=== PATIENT | female | born 1935 | race Caucasian/White ===

== ENCOUNTER 2018-11-20 14:09 | Inpatient (IN) | payer MEDICARE ==
[~2018-11-20] VITALS: Ht 157.5 cm; Wt 51.3 kg
--- NOTE | 2018-11-20 13:20 | NUR ---
ADMISSION PT ARRIVED ON UNIT ESCORTED BY COLLECTIONS ASSISTANT DEPARTMENT. ADMISSION ASSESSMENT COMPLETED REFER TO EMR.
[2018-11-20 14:45] VITALS: BP 138/72
[2018-11-20] MEDS ORDERED: ATIVAN IM PRN (15:30)
[2018-11-20] MEDS ORDERED: HALDOL IM PRN (15:30)
[2018-11-20] MEDS ORDERED: HALDOL PO PRN (15:30)
[2018-11-20 20:04] VITALS: BP 128/83
[2018-11-20] MEDS ORDERED: ATIVAN ONE (20:51)
[2018-11-20] MEDS: ATIVAN PO PRN (20:57)
--- NOTE | 2018-11-20 21:01 | NUR ---
Anxiety pt has been going up and down cote stating she is ready to leave, staff has made several attempts at redirecting pt. Pt received ativan 0.5mg po at this time,will cont to monitor pt's behaviors
--- NOTE | 2018-11-20 22:42 | PSYCH ---
DATE OF SERVICE: 11/20/2018 INITIAL PSYCHIATRIC ADMISSION HISTORY AND PHYSICAL REASON FOR ADMISSION: The patient was extremely confused and driving on the highway in a neurotic way that was dangerous to other people. She was not able to give a history to police when they pulled her over. She was extremely confused. HISTORY OF PRESENT ILLNESS: The patient is an 83-year-old female who lives in [place], [place]. She was reportedly driving in the [employer] erratically. Police were called on her and they picked her up, when she was extremely confused. She was taken to the nearest Emergency Room, which was in [place], [place]. The patient was noted to be extremely confused and not able to explain why she was in [place] when she lived in [place], [place]. She reportedly has a history of alcohol abuse versus dependence. She downplays and denies having a problem with alcohol. She reports drinking 2-3 shots of liquor a few times per week. She states having 2 DUIs in the past. She denies feeling depressed. She reported her mood was happy. She denies suicidal or homicidal ideation. She reports sleeping well at night. She reports a normal appetite. She denies feelings of guilt. She has a poor concentration level. She denies auditory or visual hallucinations. She denies paranoia. She does not have manic or hypomanic symptoms. She denies taking any medications. She was not in any physical pain during the interview. She tried to be cooperative. She does have a poor concentration level. She was disoriented to place, time and situation. She was able to state her name and date of . PAST PSYCHIATRIC HISTORY: The patient states she has never been treated for mental health problems. She denies being hospitalized for psychiatric reasons in the past. She denies ever seeing a psychiatrist or therapist. She denies ever attempting suicide. She does report having 2 DUIs in the past. She does not feel like she has an alcohol problem. PAST MEDICAL HISTORY: History of asthma. CURRENT MEDICATIONS: None reported. ALLERGIES: No known drug allergies. FAMILY PSYCHIATRIC HISTORY: None reported. SOCIAL HISTORY: The patient reports drinking 1-2 shots of alcohol 2 times a week. She does not feel like she has an alcohol problem. She had 2 DUIs in the past. She denies using illicit drugs. She denies smoking cigarettes. She reports quitting smoking 10 years ago. 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 She has been 3 times in the past. She is currently not . She reports having 2 stepsons. One stepson lives close to her in [place], [place]. She could not describe why she was in the [facility]. She is not able to give any other useful social history. OBJECTIVE: VITAL SIGNS: Height is 157.48 cm, weight is 47.17 kilograms, temperature is 99.3, pulse is 69, respirations are 18, blood pressure is 138/72, O2 saturations 96% on room air. The patient was not having any physical pain or distress at the time of the interview. REVIEW OF SYSTEMS: CONSTITUTIONAL: No recent changes in weight. No fatigue. No insomnia. NEUROLOGICAL: No tremors. No weakness. No dizziness. PSYCHIATRIC: No SI or HI. No depression. Minimal anxiety. No psychosis. No marielle. No alcohol withdrawal symptoms. GASTROINTESTINAL: No diarrhea, no nausea, no constipation, no vomiting, no GERD symptoms. GENITOURINARY: No problems urinating. No pain on urination. CARDIOVASCULAR: No chest pain or chest palpitations. RESPIRATORY: No shortness of breath. No wheezing or coughing. SKIN: No problems reported. ENDOCRINE: No heat or cold intolerance. EXTREMITIES: No swelling or edema. EYES: No recent changes in vision. EARS: No recent changes in hearing. MUSCULOSKELETAL: No abnormal muscle movements. No musculoskeletal pain reported. Review of systems is otherwise negative and reviewed by Dr. Ernandez. MENTAL STATUS EXAMINATION: MUSCLE STRENGTH AND TONE: Within normal limits for age. GAIT AND STATION: Within normal limits for age. APPEARANCE: Well-groomed and good hygiene. Appears stated age. Casual attire. Normal weight. ATTITUDE AND BEHAVIOR: Tried to be cooperative. Good eye contact. No psychomotor activity. MOOD AND AFFECT: Mood is reported as good. Affect is euthymic. ATTENTION AND CONCENTRATION: Fair attention and poor concentration. ORIENTATION: Disoriented to place, time and situation. SPEECH: Regular rate and volume. JUDGMENT: Poor judgment and poor insight. THOUGHT PROCESS: Logical and goal directed. LANGUAGE: Ugandan. THOUGHT CONTENT: Negative for suicidal or homicidal ideation. Negative for auditory or visual hallucinations. Negative for paranoia. FUND OF KNOWLEDGE: Within normal limits. ASSOCIATIONS: Within normal limits. MEMORY: Recent and remote memories are both impaired. STRENGTHS: Good physical health. WEAKNESSES: Poor judgment and poor insight. Cognitive impairment: Yes. ADMITTING DIAGNOSES: Delusional disorder; generalized anxiety disorder; dementia with behavior disturbance. Rule out alcohol abuse versus dependence. TREATMENT PLAN: 1. The patient will be an involuntary admission to the Behavioral Health Unit at [facility]. The patient will be monitored closely for behaviors. 2. The patient will be started on Haldol 2 mg p.o. IM q. 6 hours p.r.n. delusions. The patient will be started on Ativan 0.5 mg p.o. or IM q. 6 hours p.r.n. anxiety. She will be monitored closely for withdrawal symptoms. 3. She will see the general medical doctor for general medical health issues. 4. The patient was encouraged to participate in all groups and activities. 5. Social work will speak with the patient's stepson who lives on the same block as it is hard to get more information about the story. We will work on trying to find an appropriate place to discharge her to. She should not be driving due to her confusion and danger to others on the highway. Yandy Ernandez IV MD DR: /betzy JOB# [id number]
--- NOTE | 2018-11-21 00:03 | PCM.HP ---
HISTORY & PHYSICAL HISTORY & PHYSICAL DATE OF ADMISSION: CHIEF COMPLAINT: 83 yo female with acute confusion [place] [address] [place], in her vehicle, confused and driving dangerously slow. Unfortunatley pt unaware of where she is going or of any family contacts. She is cleared for psychiatric admission and evaluation. H&P #[id number] HISTORY OF PRESENT ILLNESS: ALLERGIES: CURRENT MEDICATIONS: PAST MEDICAL HISTORY: SOCIAL HISTORY: FAMILY HISTORY: REVIEW OF SYSTEMS: PHYSICAL EXAMINATION: GENERAL: VITAL SIGNS: HEENT: NECK: LUNGS: HEART: ABDOMEN: EXTREMITIES: NEUROLOGIC: LABORATORY DATA: IMPRESSION: CARE PLAN: AMAURI LEE MD Nov 21, 2018 00:03
--- NOTE | 2018-11-21 00:56 | HPH ---
ADMIT DATE: 11/20/2018 CHIEF COMPLAINT: Altered mental status. HISTORY OF PRESENT ILLNESS: This is an 83-year-old female with an unknown past medical history, who was brought to [facility] at [facility] after she was found with an altered mental status. Apparently, the patient lives in [place], [place] and was [place] on [address] outside of [facility] and was found in her car driving dangerously and slowly by the state police. EMS was then called when the patient was found and was confused and did not know where she was going. At that time, she apparently did not know where she lives. She is unable to tell us anything about her history or any of her family history other than she has 2 stepsons. When one stepson was contacted in [place], [place], he stated that she did not want anything to do with the patient secondary to her drinking. The patient is confused upon my interview and does not remember anything about this and does not remember drinking alcohol. The patient was transferred from the [facility] to [facility] for further evaluation and management. During my interview, she is confused, but is very cooperative and pleasant. She offers no active complaints other than not knowing where she is or where she was going. PAST MEDICAL HISTORY: 1. Hypertension by history. 2. Possible alcohol abuse. 3. Malnutrition. 4. Memory loss. PAST SURGICAL HISTORY: Unknown. MEDICATIONS: Unknown. ALLERGIES: No known drug allergies. SOCIAL HISTORY: Tobacco -- none. Alcohol -- the patient does not remember. FAMILY HISTORY: Unknown. REVIEW OF SYSTEMS: Other than the above-mentioned symptoms and complaints, the 11-point review of systems is negative. OBJECTIVE: VITAL SIGNS: Temperature 99.3, pulse 69, respirations 18, blood pressure 138/72, pulse oximetry 96% on room air. GENERAL: This is a well-appearing female, in no acute distress, albeit malnourished and with multiple skeletal protrusions. HEENT: Atraumatic, normocephalic. NECK: Soft, supple. Normal range of motion. LUNGS: Clear to auscultation bilaterally. HEART: Regular rate and rhythm without murmurs, S3 or S4. ABDOMEN: Soft, nontender, nondistended. Positive bowel sounds. No masses felt. EXTREMITIES: No edema, cyanosis or clubbing. Warm and well perfused. NEUROLOGIC: Cranial nerves 2-12 are grossly intact and symmetric. SKIN: Intact. PSYCHIATRIC: The patient is alert and oriented x2 during my examination. LABORATORY DATA: Pending. ASSESSMENT: 1. Acute delirium/memory loss. 2. Possible alcohol use/abuse. 3. Hypertension. 4. Moderate to severe protein-calorie malnutrition. PLAN: 1. The patient is admitted to [facility] for further evaluation and management. 2. Check TSH, B12, folate, thiamin and prealbumin levels. 3. Start patient on appetite stimulant. 4. Medications for psychosis and acute delirium as needed. 5. Psychiatric consultation and social services assistant consultation for possible placement. 6. The patient is cleared from a medical standpoint to begin psychiatric consultation. Yomi Kern MD DR: JODY/betzy JOB# [id number]
--- NOTE | 2018-11-21 04:39 | NUR ---
PIRP: P:ALTERED THOUGHT PROCESS, MALNUTRITION I: PROVIDE SAFE AND SUPPORTIVE ENVIRONMENT, PROVIDE REALITY ORIENTATION NEEDED, PROVIDE MEDICATIONS ORDERED, PROVIDE 1:1 TO ALLOW PT. TO EXPRESS THOUGHTS AND FEELINGS, MONITOR AND DOCUMENT FLUID AND FOOD INTAKE, ORDER DIETARY CONSULT, ENCOURAGE FLUIDS AND ENCOURAGE PT. TO EAT ALL MEALS AND SNACKS. R: PT. HAS A SAFE AND SUPPORTIVE ENVIRONMENT, PT. IS ORIENTED TO SELF ONLY. PT. THINKS SHE IS IN [place]. PT. TOOK HER NIGHT TIME MEDS. ALL FOOD AND FLUID ARE MONITOR AND RECORDED IN CHART, DIETARY CONSULT IS ORDERED. PT. IS PROVIDED A 1:1 TO EXPRESS HER FEELINGS, PT. ATE A SNACK TONIGHT. SHE HAD ICE CREAM AND A SODA. PT. HAS WANDERED IN THE GOTTI AND HAS BEEN EXIT SEEKING. PT. IS EASILY REDIRECTED. PT. IS PLEASANT AND COOPERATIVE. DENIES AND DEPRESSION, ANXIETY OR S/H IDEATION. CONTINUE CURRENT TX. PLAN
[2018-11-21 07:52] VITALS: BP 126/59
--- NOTE | 2018-11-21 09:29 | NUR ---
INFORMATION PT GAVE VERBAL CONSENT TO CHRISTO VALDEZ TO OBTAIN INFORMATION FROM AND PHARMACY TO HELP IN CARE. PLACED A CALL TO [facility]. THEY LOOKED UP THE PHARMACY RECORDS FOR PT IN [place]. THEY SAID RECORDS SHOWED THE LAST THING PT HAD ON FILE WAS A FLU VACCINE OCTOBER OF 2017. BEFORE THAT WAS A COUPLE YEARS AGO. NOTES FROM [facility] SHOWED THAT PTS IS A DR BRENTON RODRIGUEZ IN [facility][1]. LOOKED UP THE NUMBER ([phone]) AND CALLED. TALKED TO Lina JACQUES AND EXPLAINED WHO I WAS/WHERE AND EXPLAINED WHAT I NEEDED. SHE ASKED FOR FAX NUMBER AND CALL BACK NUMBER. BOTH NUMBERS WERE PROVIDED. GEORGIE DID SAY THAT PT HAS A OPEN APS CASE. ALL INFORMATION REPORTED TO CHRISTO.
--- NOTE | 2018-11-21 10:08 | NUR ---
PAST MEDICAL HISTORY ON H&P FROM DR. 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 MOTHER CAUSE OF PANCREATIC CANCER HISTORY OF ARRHYTHMIA FATHER CAUSE OF CORONARY OCCLUSION HISTORY OF HEART DISEASE AND HEART ATTACK SISTER MULTIPLE MYELOMA ALSO SHOWS THAT PT WAS TO BE TAKING ZOCOR 40MG DAILY. Addendum: 11/21/18 at 1023 by Tomasa Cabrera LVN - GP FIOR Amended: Links added.
--- NOTE | 2018-11-21 14:19 | PRM.PN ---
Mood: STABLE, NO ACUTE COMPLAINTS Sleep: SLEPT 7.25 HOURS. REPORTS SHE HAD A HARD TIME FALLING SLEEP. Appetite: GOOD Suidical thoughts: DENIES Homicidal thoughts: DENIES Recent stressors: COGNITIVE DECLINE Family support: POOR Aggressive Behavior: NONE NOTED Ability to Perform ADL'sc: FAIR Psychotic sympstoms: DELUSIONAL THINKING DUE TO DEMENTIA Manic Symptoms: NONE NOTED Living situation: ALONE Illicit Drug usec: NONE Alcoholo use: HISTORY OF ALCOHOLISM Tobacco use: NONE Family,PT,Surgical,&Current HX: (1) Delusional disorder Anxity Symptoms: DENIES Anger/Irritablility: NONE NOTED. Muscle Strength & Tone: WNL Gait & Station: WNL Appearance: Well groomed/hygience, Normal weight, Appears age stated, Underweight Attitude & Behaviour: Cooperative/Pleasant, Good eye contact Mood & Affect: Euthymic/appr/congruent Orientation: Disoriented to place, Disoriented to time, Disoriented to situation Attention/Concentration: Fair attention, Fair concentration Speech: Reg rate/vol/rhyth/prosod Judgement/Insight: Poor judgement, Poor insight Thought Process: Loose Language: Tanzanian Thought content/Abnormal/Psych: Delusions Fund of Knowledge: Other (LIMITED) Associations: MELVA Memory (recent and remote): Recent memory repaired, Remote memory repaired Constitutional: None Neurological: None Psychiatric: None Dannemora I: DEMENTIA Dannemora II: DEFERRED Dannemora III: SEE MEDICAL CHART/PMH Dannemora IV: DEMENTIA Dannemora V: 20 Assessment/Plan Assessment/Plan Plan Vital Signs Date Time Temp Pulse Resp B/P (MAP) Pulse Ox O2 Delivery O2 Flow Rate FiO2 11/21/18 07:52 98.4 63 18 126/59 (81) 95 Room Air 98.4 Allergies Coded Allergies Type Severity Reaction Last Updated Verified No Known Allergies 11/20/18 No Current Medications Medications (Trade) Dose Ordered Sig/Jany PRN Reason Start Time Stop Time Status Last Admin Haloperidol (Haldol) 2 mg Q6H PRN DELUSIONS 11/20/18 15:30 12/20/18 15:29 Haloperidol Lactate (Haldol) 2 mg Q6HR PRN DELUSIONS 11/20/18 15:30 12/20/18 15:29 Lorazepam (Ativan) 0.5 mg Q6 PRN ANXIETY 11/20/18 15:30 12/20/18 15:29 Lorazepam (Ativan) 0.5 mg Q6HR PRN ANXIETY 11/20/18 15:30 3 15:29 11/20/18 20:57 Intake and Output 11/21/18 07:00 Intake Total 1020 ml Balance 1020 ml Intake Oral 1020 ml # Voids 5 # Bowel Movements 1 THE PATIENT WAS SEEN BY HEATH VARELA VIA TELEMEDICINE EQUIPMENT (SUPPORTED BY [facility]) ALONG WITH THE TREATMENT TEAM. SHE IS SLEEPING WELL. SHE HAS NOT HAD ANY PROBLEMS ON THE UNIT SINCE SHE ARRIVED. SHE REPORTS THAT SHE SLEPT WELL ONCE SHE FELL ASLEEP. SHE IS EATING WELL. SHE BELIEVES THAT IT IS 2011. SHE ALSO BELIEVES THAT SHE IS [place]. SHE ALSO BELIEVES THAT SHE WAS 85. SHE REPORTS THAT SHE WAS GOING TO THE HOSPITAL IN [place] WHEN SHE LEFT. SHE BELIEVES THAT SHE HAD A SITUATION THAT NEEDED TO BE TREATED BUT SHE DOES NOT RECALL WHY SHE WAS GOING THERE. SHE DOES NOT RECOGNIZE THAT HER MEMORY IS IMPAIRED. SHE LIVES ALONE WITH HER DOG. SHE IS PLEASANT AND COOPERATIVE BUT VERY CONFUSED. SHE DENIES SI/HI/AV/VH. ASSESSMENT: DEMENTIA PLAN: 1. CONTINUE BEHAVIORAL HEALTH MANAGEMENT. 2. CONTINUE CURRENT MEDICATIONS PRESCRIBED. STAFF AGREEABLE WITH PLAN 3. ALL PATIENT QUESTIONS ANSWERED RELATED TO MEDICATIONS, PLAN OF CARE, AND EXPECTED OUTCOMES. 4. SAFETY PLAN DISCUSSED. HEATH VARELA NP Nov 21, 2018 14:18
--- NOTE | 2018-11-21 16:02 | NUR ---
GMAS SCORE : FINDINGS INDICATE PT IS WITHIN NORMAL RANGE Addendum: 11/22/18 at 1702 by Adrienne Moreau LMSW SW Amended: Links added.
--- NOTE | 2018-11-21 16:10 | NUR ---
MMSE SCORE 20: FINDINGS INDICATE MILD IMPAIRMENT Addendum: 11/22/18 at 1702 by Adrienne Moreau LMSW SW Amended: Links added.
--- NOTE | 2018-11-21 16:46 | NUR ---
SYMPTOMATOLOGY: PT LIVES IN [place], [place] AND [place] [address] [place]OW AND WHEN SHE STOPPED SHE WAS GETTING IN AND OUT OF THE CAR AND DISORIENTED AND CONFUSED. PT WAS ONLY ORIENTED TO SELF AND UNABLE TO TELL WHERE SHE WAS OR WHY. PT WAS BROUGHT TO [facility] FOR FURTHER MANAGEMENT AND IS INVOLUNTARY. PT HAS A APS SOFT[employer] W[employer]ER IN [place] ([employer]) WHO IS CURRENTLY TRYING TO WORK ON GUARDIANSHIP SO THEY CAN PLACE PT HER CONTACT NUMBER IS [phone] AND FAX IS [phone]. SS TO CONTINUE TO FOLLOW AND MONITOR DISCHARGE PLANNING NEEDS. Addendum: 11/22/18 at 1702 by Adrienne SHELBY Amended: Links added.
[2018-11-21 19:20] VITALS: BP 141/82
--- NOTE | 2018-11-21 19:49 | NUR ---
PIRP P: DEMENTIA I: RE-ORIENT TO SURROUNDINGS NEEDED, MONITOR FOR CHANGES IN USUAL BEHAVIOR, Q15 MIN MONITORING, REDIRECT WITH VERBALIZATION, GIVE CLEAR AND SIMPLE INSTRUCTIONS, REDIRECT WITH VERBALIZATION, PROVIDE 1:1 TO ENCOURAGE EXPRESSION OF FEELINGS, PROVIDE TASK-ORIENTED ACTIVITIES, ASSESS FOR PSYCHOTIC SYMPTOMS, PROVIDE SAFE AND SUPPORTIVE ENVIRONMENT, REINFORCE UNIT RULES R: PT HAS PLEASANT, CHEERFUL AFFECT THROUGHOUT SHIFT. REQUIRES VERBAL REDIRECTION D/T DISORIENTATION. DENIES FEELINGS OF DEPRESSION, ANXIETY, SI/HI. NO HALLUCINATIONS OR DELUSIONS NOTED. HAS PARTICIPATED IN GROUP ACTIVITIES, INITIATES INTERACTION WITH STAFF AND PEERS. NO THREATENING OR COMBATIVE BEHAVIORS NOTED. WANDERS GOTTI FREQUENTLY AND REQUESTS TO GO HOME OR TO GO GET HER TRUCK, IS ABLE TO BE REDIRECTED WITH VERBALIZATION. P: RE-INFORCE UNIT RULES, PROVIDE REALITY ORIENTATION.
[2018-11-21] MEDS ORDERED: ATIVAN ONE (23:42)
[2018-11-21] MEDS: ATIVAN PO PRN (23:45)
--- NOTE | 2018-11-22 04:45 | NUR ---
PIRP- P- ALTERED THOUGHT PROCESS I- PROVIDE MEDICATION ORDERED,PROVIDE SAFE AND SUPPORTIVE ENVIRONMENT AND Q 15 MIN. MONITORING R- PT. ORIENTED TO NAME NOT MONTH OR YEAR. DENIES DEPRESSION AND ANXIETY. ATTENDED GROUP. WANDERED IN GOTTI AT TIMES. REQUIRES REDIRECTION . PT. EXHIBITED ANXIETY AND PUSHED A CHAIR UP TO HER DOOR AND A TOWEL AT THE BOTTOM OF HER DOOR TO BARRICADE IT. ATIVAN 0.5MG PO PRN GIVEN AT 2345. TOOK MEDICATION ORDERED. PT. GOT UP DURING THE NIGHT AND WENT INTO FEMALE PEER'S ROOM LOOKING FOR HER BR BUT WAS REDIRECTED. RESTING IN BED WITH EYES CLOSED AT THIS TIME. P- WILL CONTINUE WITH CURRENT TX. PLAN.
[2018-11-22 08:41] VITALS: BP 105/55
--- NOTE | 2018-11-22 09:39 | PRM.PN ---
Mood: STABLE, SOME RESTLESSNESS NOTED Sleep: SLEPT WELL LAST NIGHT Appetite: GOOD Suidical thoughts: DENIES Homicidal thoughts: DENIES Recent stressors: INCREASED CONFUSION Family support: POOR Aggressive Behavior: NONE NOTED Ability to Perform ADL'sc: GOOD Psychotic sympstoms: DENIES Manic Symptoms: NONE NOTED Living situation: ALONE Illicit Drug usec: NONE Alcoholo use: NONE Tobacco use: NONE Family,PT,Surgical,&Current HX: (1) Delusional disorder Anxity Symptoms: MILD TO MODERATE Anger/Irritablility: NONE NOTED Muscle Strength & Tone: WNL Gait & Station: WNL Appearance: Well groomed/hygience, Casual attire, Normal weight, Appears younger Attitude & Behaviour: Cooperative/Pleasant, Good eye contact Mood & Affect: Euthymic/appr/congruent Orientation: Disoriented to place, Disoriented to time, Disoriented to situation Attention/Concentration: Fair attention, Fair concentration Speech: Reg rate/vol/rhyth/prosod Judgement/Insight: Fair judgement, Poor insight Thought Process: Loose Language: Montserratian Thought content/Abnormal/Psych: None/normal Fund of Knowledge: Other (LIMITED TO MEMORY DEFICITS) Associations: MELVA Memory (recent and remote): Recent memory repaired, Remote memory repaired Constitutional: None Neurological: None Psychiatric: None Lincoln I: DEMENTIA W/O BEHAVIORAL DISTURBANCES [place] II: DEFERRED Lincoln III: SEE MEDICAL CHART Lincoln IV: CONFUSION Lincoln V: 35 Assessment/Plan Assessment/Plan Plan Vital Signs Date Time Temp Pulse Resp B/P (MAP) Pulse Ox O2 Delivery O2 Flow Rate FiO2 11/22/18 08:41 97.9 55 16 105/55 (72) 95 97.9 11/21/18 19:20 Room Air Allergies Coded Allergies Type Severity Reaction Last Updated Verified No Known Allergies 11/20/18 No Current Medications Medications (Trade) Dose Ordered Sig/Jany PRN Reason Start Time Stop Time Status Last Admin Haloperidol (Haldol) 2 mg Q6H PRN DELUSIONS 11/20/18 15:30 12/20/18 15:29 Haloperidol Lactate (Haldol) 2 mg Q6HR PRN DELUSIONS 11/20/18 15:30 12/20/18 15:29 Lorazepam (Ativan) 0.5 mg Q6 PRN ANXIETY 11/20/18 15:30 12/20/18 15:29 Lorazepam (Ativan) 0.5 mg Q6HR PRN ANXIETY 11/20/18 15:30 12/20/18 15:29 11/21/18 23:45 Intake and Output 11/22/18 07:00 Intake Total 1894 ml Balance 1894 ml Intake Oral 1894 ml # Voids 6 THE PATIENT WAS SEEN BY HEATH VARELA VIA TELEMEDICINE EQUIPMENT (SUPPORTED BY [facility]) ALONG WITH THE TREATMENT TEAM. SHE SLEPT WELL LAST NIGHT. SHE REPORTS FAIR ENERGY. SHE IS EATING WELL. SHE IS COOPERATIVE AND PLEASANT ON THE UNIT. SHE DENIES DEPRESSIVE SYMPTOMS. SHE REPORTS ANXIETY RELATED TO BEING ABLE TO SEE HER DOG. SHE DENIES SI/HI/AV/VH. SHE CONTINUES TO BE QUITE CONFUSED AND SHE IS A POOR HISTORIAN. SHE RECEIVED PRN ATIVAN YESTERDAY RESTLESSNESS. ASSESSMENT: DEMENTIA W/O BEHAVIORAL DISTURBANCES PLAN: 1. CONTINUE BEHAVIORAL HEALTH MANAGEMENT. [facility] SEEKING [facility]ACEMENT FOR HER AFTER THEY OBTAIN GUARDIANSHIP. 2. CONTINUE CURRENT MEDICATIONS PRESCRIBED. STAFF AGREEABLE WITH PLAN 3. ALL PATIENT QUESTIONS ANSWERED RELATED TO MEDICATIONS, PLAN OF CARE, AND EXPECTED OUTCOMES. 4. SAFETY PLAN DISCUSSED. HEATH VARELA NP Nov 22, 2018 09:39
--- NOTE | 2018-11-22 10:30 | NUR ---
TELE PT WAS SEEN BY Keira VARELA, SWETHA, DIRECTOR PHYSICAL. NO NEW ORDERS RECEIVED @ THIS TIME.
--- NOTE | 2018-11-22 18:32 | NUR ---
PIRP P: DEMENTIA I: MONITOR FOR CHANGES IN USUAL BEHAVIOR, Q15 MIN MONITORING, GIVE CLEAR AND SIMPLE INSTRUCTIONS, ASSESS FOR PSYCHOTIC SYMPTOMS, ASSIST WITH DIFFERENTIATING BETWEEN INTERNAL AND EXTERNAL REALITY, REDIRECT WITH VERBALIZATION, PROVIDE TASK-ORIENTED ACTIVITIES, RE-ORIENT TO SURROUNDINGS NEEDED R: PT HAS PLEASANT, BRIGHT AFFECT THROUGHOUT SHIFT. HAS NOT EXHIBITED THREATENING OR COMBATIVE BEHAVIORS. WANDERS GOTTI @ TIMES AND ASKS IF IT IS TIME FOR HER TO LEAVE OR IF SHE CAN GO GET HER VEHICLE, PT IS EASILY REDIRECTED WITH VERBALIZATION. DENIES FEELINGS OF DEPRESSION, ANXIETY, SI/HI. NO HALLUCINATIONS OR DELUSIONS NOTED. PARTICIPATES IN GROUP ACTIVITIES, RESPONDS APPROPRIATELY TO APPROACH. P: APS HAS BEEN CONTACTED BY Keny JARAMILLO LMSW. PENDING [facility] TO BE GRANTED GUARDIANSHIP OF PATIENT FOR FURTHER DISCHARGE PLANNING.
[2018-11-22 20:00] VITALS: BP 150/60
[2018-11-23] MEDS ORDERED: ATIVAN ONE (00:19)
[2018-11-23] MEDS: ATIVAN PO PRN (00:21)
--- NOTE | 2018-11-23 00:24 | NUR ---
medication patient up in hallway looking in other rooms, states she heard all the noise and was checking to see what it was, patient anxious, ativan 0.5mg po given per prn orders per RN
--- NOTE | 2018-11-23 03:04 | NUR ---
KATHIA P: DEMENTIA I: MONITOR FOR CHANGES IN USUAL BEHAVIOR, Q15 MIN MONITORING, GIVE CLEAR AND SIMPLE INSTRUCTIONS, ASSESS FOR PSYCHOTIC SYMPTOMS, ASSIST WITH DIFFERENTIATING BETWEEN INTERNAL AND EXTERNAL REALITY, REDIRECT WITH VERBALIZATION, PROVIDE TASK-ORIENTED ACTIVITIES, RE-ORIENT TO SURROUNDINGS NEEDED R: PT HAS PLEASANT, BRIGHT AFFECT THROUGHOUT SHIFT. HAS NOT EXHIBITED THREATENING OR COMBATIVE BEHAVIORS. WANDERS GOTTI @ TIMES AND LOSES ROOM OFTEN HAS TO ASK WHERE IT IS , WANDERED INTO WRONG ROOM ONCE TONIGHT HAD TO REDIRECT TO HERS , PT IS EASILY REDIRECTED WITH VERBALIZATION. DENIES FEELINGS OF DEPRESSION, ANXIETY, SI/HI. NO HALLUCINATIONS OR DELUSIONS NOTED. PARTICIPATES IN GROUP ACTIVITIES, INTERACT ACTS WELL WITH OTHERS , TOOK SNACK WELL , STATED ONCE THE ONLY THING THAT COULD BE BETTER IS HAVING HER DOG , PATIENT ORIENTATED TO NAME , BIRTHDAY UNABLE TO PLACE SELF OTHER THAN IN HOSPITAL BUT NOT LOCATION STATED I DID KNOW I WAS EVEN SICK , SLEEPING AT THIS TIME P: CONTINUE WITH CURRENT PLAN OF CARE Addendum: 11/23/18 at 0553 by Stephanie Curtis RN RN patient has slept 5.0 hrs
[2018-11-23 08:37] VITALS: BP 120/53
--- NOTE | 2018-11-23 09:44 | PRM.PN ---
Mood: "FINE", THE PATIENT DENIES FEELING DEPRESSED Sleep: SLEEPING OK AT NIGHT Appetite: NORMAL APPETITE Suidical thoughts: NONE REPORTED Homicidal thoughts: NONE REPORTED Recent stressors: STRESS OF MENTAL ILLNESS Family support: LIMITED Aggressive Behavior: NONE REPORTED Ability to Perform ADL'sc: YES Psychotic sympstoms: DELUSIONAL THINKING, DENIES HALLUCINATIONS Manic Symptoms: NONE REPORTED Living situation: LIVES AT HOME BY HERSELF Illicit Drug usec: NONE REPORTED Alcoholo use: NONE REPORTED Tobacco use: NONE REPORTED Anxity Symptoms: MODERATE ANXIETY LEVEL Anger/Irritablility: LIMITED ANGER AND IRRITABILITY Muscle Strength & Tone: WNL Gait & Station: WNL Appearance: Well groomed/hygience, Casual attire, Normal weight, Appears age stated Attitude & Behaviour: Cooperative/Pleasant Mood & Affect: Euthymic/appr/congruent Orientation: Disoriented to place, Disoriented to time, Disoriented to situation Attention/Concentration: Poor attention, Poor concentration Speech: Reg rate/vol/rhyth/prosod Judgement/Insight: Poor judgement, Poor insight Thought Process: Linear/goal directed Language: Welsh Thought content/Abnormal/Psych: Delusions Fund of Knowledge: Other Associations: WNL/Normal Associations Memory (recent and remote): Recent memory repaired, Remote memory repaired Constitutional: None Neurological: None Psychiatric: None [place] I: DELUSIONAL DISORDER, ANXIETY, DEMENTIA WITH BEHAVIOR PROBLEMS [place] II: DEFERRED [place] III: REFER TO PMH/MEDICAL CHART [place] IV: STRESS OF MENTAL ILLNESS [place] V: GAF=30 Assessment/Plan Assessment/Plan Assessment/Plan Vital Signs Date Time Temp Pulse Resp B/P (MAP) Pulse Ox O2 Delivery O2 Flow Rate FiO2 11/22/18 08:41 97.9 55 16 105/55 (72) 95 97.9 11/21/18 19:20 Room Air Allergies Coded Allergies Type Severity Reaction Last Updated Verified No Known Allergies 11/20/18 No Current Medications Medications (Trade) Dose Ordered Sig/Jany PRN Reason Start Time Stop Time Status Last Admin Haloperidol (Haldol) 2 mg Q6H PRN DELUSIONS 11/20/18 15:30 12/20/18 15:29 Haloperidol Lactate (Haldol) 2 mg Q6HR PRN DELUSIONS 11/20/18 15:30 12/20/18 15:29 Lorazepam (Ativan) 0.5 mg Q6 PRN ANXIETY 11/20/18 15:30 12/20/18 15:29 Lorazepam (Ativan) 0.5 mg Q6HR PRN ANXIETY 11/20/18 15:30 12/20/18 15:29 11/21/18 23:45 Intake and Output 11/22/18 07:00 Intake Total 1894 ml Balance 1894 ml Intake Oral 1894 ml # Voids 6 THE PATIENT WAS SEEN BY DEMETRIA SORENSEN MD VIA TELEMEDICINE EQUIPMENT (SUPPORTED BY [facility]) ALONG WITH THE TREATMENT TEAM. THE PATIENT'S MOOD IS UP AND DOWN. THE PATIENT HAS SUN DOWNING BEHAVIOR AT NIGHT. THE PATIENT HAS EXIT SEEKING BEHAVIOR. THE PATIENT SLEPT 5 HOURS LAST NIGHT. THE PATIENT HAS RECEIVED THREE PRN ATIVAN DOSES SINCE BEING IN THE FACILITY. THE PATIENT HAS A NORMAL ENERGY. THE PATIENT IS EATING WELL PER STAFF. SHE IS COOPERATIVE AND PLEASANT ON THE UNIT. SHE DENIES DEPRESSIVE SYMPTOMS. SHE REPORTS ANXIETY RELATED TO BEING ABLE TO SEE HER DOG. SHE DENIES SI/HI/AV/VH. SHE CONTINUES TO BE QUITE CONFUSED AND SHE IS A POOR HISTORIAN. THE PATIENT KNEW SHE WAS AT A HOSPITAL. THE PATIENT IS DISORIENTED TO PLACE, TIME, AND SITUATION. THE PATIENT DOES NOT REMEMBER THINGS VERY WELL. ASSESSMENT: DELUSIONAL DISORDER, DEMENTIA W/O BEHAVIORAL DISTURBANCES, GENERALIZED ANXIETY DISORDER PLAN: 1. CONTINUE BEHAVIORAL HEALTH MANAGEMENT. [facility] IS SEEKING PLACEMENT FOR HER AFTER THEY OBTAIN GUARDIANSHIP. 2. START RISPERDAL 0.25MG PO QHS. CONTINUE OTHER CURRENT MEDICATIONS PRESCRIBED. STAFF AGREEABLE WITH PLAN 3. ALL PATIENT QUESTIONS ANSWERED RELATED TO MEDICATIONS, PLAN OF CARE, AND EXPECTED OUTCOMES. 4. SAFETY PLAN DISCUSSED. 5. 16 MINUTES SPENT IN SUPPORTIVE THERAPY AND INSIGHT ORIENTED THERAPY. Problems: (1) Delusional disorder Status: Acute ICD Code: F22 - Delusional disorders SNOMED: 87636226 Plan Vital Signs Date Time Temp Pulse Resp B/P (MAP) Pulse Ox O2 Delivery O2 Flow Rate FiO2 11/22/18 08:41 97.9 55 16 105/55 (72) 95 97.9 11/21/18 19:20 Room Air Allergies Coded Allergies Type Severity Reaction Last Updated Verified No Known Allergies 11/20/18 No Current Medications Medications (Trade) Dose Ordered Sig/Jany PRN Reason Start Time Stop Time Status Last Admin Haloperidol (Haldol) 2 mg Q6H PRN DELUSIONS 11/20/18 15:30 12/20/18 15:29 Haloperidol Lactate (Haldol) 2 mg Q6HR PRN DELUSIONS 11/20/18 15:30 12/20/18 15:29 Lorazepam (Ativan) 0.5 mg Q6 PRN ANXIETY 11/20/18 15:30 12/20/18 15:29 Lorazepam (Ativan) 0.5 mg Q6HR PRN ANXIETY 11/20/18 15:30 12/20/18 15:29 11/21/18 23:45 Intake and Output 11/22/18 07:00 Intake Total 1894 ml Balance 1894 ml Intake Oral 1894 ml # Voids 6 THE PATIENT WAS SEEN BY HEATH VARELA VIA TELEMEDICINE EQUIPMENT (SUPPORTED BY [facility]) ALONG WITH THE TREATMENT TEAM. SHE SLEPT WELL LAST NIGHT. SHE REPORTS FAIR ENERGY. SHE IS EATING WELL. SHE IS COOPERATIVE AND PLEASANT ON THE UNIT. SHE DENIES DEPRESSIVE SYMPTOMS. SHE REPORTS ANXIETY RELATED TO BEING ABLE TO SEE HER DOG. SHE DENIES SI/HI/AV/VH. SHE CONTINUES TO BE QUITE CONFUSED AND SHE IS A POOR HISTORIAN. SHE RECEIVED PRN ATIVAN YESTERDAY RESTLESSNESS. ASSESSMENT: DEMENTIA W/O BEHAVIORAL DISTURBANCES PLAN: 1. CONTINUE BEHAVIORAL HEALTH MANAGEMENT. [facility] IS SEEKING PLACEMENT FOR HER AFTER THEY OBTAIN GUARDIANSHIP. 2. CONTINUE CURRENT MEDICATIONS PRESCRIBED. STAFF AGREEABLE WITH PLAN 3. ALL PATIENT QUESTIONS ANSWERED RELATED TO MEDICATIONS, PLAN OF CARE, AND EXPECTED OUTCOMES. 4. SAFETY PLAN DISCUSSED. DEMETRIA SORENSEN IV, MD Nov 23, 2018 09:44
--- NOTE | 2018-11-23 17:37 | NUR ---
PIRP P: DEMENTIA I: MONITOR FOR CHANGES IN USUAL BEHAVIOR, Q15 MIN MONITORING, GIVE CLEAR AND SIMPLE INSTRUCTIONS, ASSESS FOR PSYCHOTIC SYMPTOMS, ASSIST WITH DIFFERENTIATING BETWEEN INTERNAL AND EXTERNAL REALITY, REDIRECT WITH VERBALIZATION, PROVIDE TASK-ORIENTED ACTIVITIES, RE-ORIENT TO SURROUNDINGS NEEDED R: PT HAS NOT SHOWN ANY BEHAVIORS NOR REQUIRED ANY PRNS THIS SHIFT. NEW ORDER RECEIVED FOR RISPERDAL TO HELP PT SLEEP AT NIGHT. APS WORKER VISITED WITH NISA ALBERTS. PT CONTINUES TO WONDER IN [place] AND ASKS TO LEAVE BUT IS EASILY DIRECTED. P: CONTINUE WITH PLAN OF CARE, AND NEW MEDICATION REGIMEN
[2018-11-23 19:44] VITALS: BP 138/75
[2018-11-23] MEDS: RISPERDAL PO SCH (20:26)
--- NOTE | 2018-11-24 03:25 | NUR ---
PIRP- P- ALTERED THOUGHT PROCESS I- PROVIDE MEDICATION ORDERED,PROVIDE SAFE AND SUPPORTIVE ENVIRONMENT AND Q 15 MIN. MONITORING. R- PT. ORIENTED TO NAME AND MONTH NOT YEAR. DENIED DEPRESSION AND ANXIETY. ATTENDED GROUP,ATE SNACKS AND PARTICIPATED IN ACTIVITIES. TOOK MEDICATION ORDERED. WAS ASSISTED WITH A SHOWER. PLEASANT AFFECT. WANDERED AT TIMES BUT EASILY REDIRECTED. RESTING IN BED WITH EYES CLOSED AT THIS TIME. P- WILL CONTINUE WITH CURRENT TX. PLAN.
[2018-11-24 09:19] VITALS: BP 117/77
--- NOTE | 2018-11-24 10:31 | PRM.PN ---
Mood: STABLE DENIES DEPRESSIVE SYMPTOMS Sleep: SLEPT 5 HOURS Appetite: GOOD Suidical thoughts: DENIES Homicidal thoughts: DENIES Recent stressors: COGNITIVE DECLINE Family support: POOR Aggressive Behavior: NONE NOTES Ability to Perform ADL'sc: GOOD Psychotic sympstoms: DENIES Manic Symptoms: NONE NOTED Living situation: ALONE SEEKING PLACEMENT Illicit Drug usec: NONE Alcoholo use: NONE Tobacco use: NONE Family,PT,Surgical,&Current HX: (1) Delusional disorder Anxity Symptoms: DENIES Anger/Irritablility: NONE NOTED, DENIES Muscle Strength & Tone: WNL Gait & Station: WNL Appearance: Well groomed/hygience, Casual attire, Appears age stated, Appears younger Attitude & Behaviour: Cooperative/Pleasant, Good eye contact Mood & Affect: Euthymic/appr/congruent Orientation: Disoriented to place, Disoriented to time, Disoriented to situation Attention/Concentration: Fair attention, Fair concentration Speech: Reg rate/vol/rhyth/prosod Judgement/Insight: Poor judgement, Poor insight Thought Process: Loose Language: Maldivian Thought content/Abnormal/Psych: None/normal Fund of Knowledge: Other (LIMITED) Memory (recent and remote): Recent memory repaired, Remote memory repaired Constitutional: None Neurological: None Psychiatric: None [place] I: DELUSIONAL DISORDER, DEMENTIA W/O BEHAVIORAL DISTURBANCES [place] II: DEFERRED [place] III: SEE MEDICAL CHART [place] IV: COGNITIVE DECLINE [place] V: 30 Assessment/Plan Assessment/Plan Plan Vital Signs Date Time Temp Pulse Resp B/P (MAP) Pulse Ox O2 Delivery O2 Flow Rate FiO2 11/24/18 09:19 98.1 78 17 117/77 (90) 99 Room Air 98.1 Allergies Coded Allergies Type Severity Reaction Last Updated Verified No Known Allergies 11/20/18 No Current Medications Medications (Trade) Dose Ordered Sig/Jany PRN Reason Start Time Stop Time Status Last Admin Risperidone (Risperdal) 0.25 mg HS 11/23/18 21:00 12/23/18 20:59 11/23/18 20:26 Intake and Output 11/24/18 07:00 Intake Total 1946 ml Balance 1946 ml Intake Oral 1946 ml # Voids 2 THE PATIENT WAS SEEN BY HEATH VARELA VIA TELEMEDICINE EQUIPMENT (SUPPORTED BY [facility]) ALONG WITH THE TREATMENT TEAM. SHE IS DOING WELL OVERALL. SHE IS EATING AND SLEEPING WELL. SHE HAS BEEN CALM AND COOPERATIVE. SHE DENIES DEPRESSIVE AND ANXIOUS SYMPTOMS. SHE DENIES SI/HI/AV/VH. SHE REPORTS LOW ENERGY TODAY. RISPERDAL WAS STARTED YESTERDAY. SHE CONTINUES TO BE CONFUSED. ASSESSMENT: DELUSIONAL DISORDER, DEMENTIA W/O BEHAVIORAL DISTURBANCES PLAN: 1. CONTINUE BEHAVIORAL HEALTH MANAGEMENT. 2. CONTINUE CURRENT MEDICATIONS PRESCRIBED. STAFF AGREEABLE WITH PLAN 3. ALL PATIENT QUESTIONS ANSWERED RELATED TO MEDICATIONS, PLAN OF CARE, AND EXPECTED OUTCOMES. 4. SAFETY PLAN DISCUSSED. HEATH VARELA NP Nov 24, 2018 10:31
--- NOTE | 2018-11-24 10:52 | NUR ---
TELEMED PT SPOKE WITH DR VARELA DNP. PT IS PLEASANTLY CONFUSED. NO NEW ORDERS RECEIVED AT THIS TIME. CONTINUE PLAN OF CARE
--- NOTE | 2018-11-24 17:40 | NUR ---
PIRP P: DEMENTIA I: MONITOR FOR CHANGES IN USUAL BEHAVIOR, Q15 MIN MONITORING, GIVE CLEAR AND SIMPLE INSTRUCTIONS, ASSESS FOR PSYCHOTIC SYMPTOMS, ASSIST WITH DIFFERENTIATING BETWEEN INTERNAL AND EXTERNAL REALITY, REDIRECT WITH VERBALIZATION, PROVIDE TASK-ORIENTED ACTIVITIES, RE-ORIENT TO SURROUNDINGS NEEDED R: PT HAS NOT SHOWN ANY BEHAVIORS. IS CONFUSED, BUT IS PLEASANT. PT HAS NOT BEEN EXIT SEEKING TODAY. REMINISCING GROUPS DONE FOR COGNITIVE TRAINING. NO NEW PLANS FOR DISCHARGE. P: CONTINUE WITH PLAN OF CARE, AND NEW MEDICATION REGIMEN
[2018-11-24 20:21] VITALS: BP 156/60
[2018-11-24] MEDS: RISPERDAL PO SCH (21:01)
--- NOTE | 2018-11-25 04:05 | NUR ---
PIRP- P- ALTERED THOUGHT PROCESS I- PROVIDE MEDICATION ORDERED,PROVIDE SAFE AND SUPPORTIVE ENVIRONMENT AND Q 15 MIN. MONITORING. R- PT. ORIENTED TO NAME AND YEAR NOT MONTH. RATED DEPRESSION 5 AND DENIES ANXIETY. PARTICIPATED IN WORKING A [employer]. TALKED ABOUT HER DOGS AND HOW WORRIED SHE IS ABOUT THEM.ATE SNACKS. TOOK MEDICATION ORDERED. RESTING IN BED WITH EYES CLOSED AT THIS TIME. P- WILL CONTINUE WITH CURRENT TX. PLAN.
[2018-11-25 07:55] VITALS: BP 139/65
--- NOTE | 2018-11-25 16:46 | NUR ---
PIRP P: DEMENTIA I: PROVIDE SAFE AND SUPPORTIVE ENVIRONMENT, RE-ORIENT TO SURROUNDINGS NEEDED, Q15 MIN MONITORING, GIVE CLEAR AND SIMPLE INSTRUCTIONS, REDIRECT WITH VERBALIZATION, ASSESS FOR PSYCHOTIC SYMPTOMS, GIVE MEDICATIONS ORDERED, PROVIDE 1:1 TO ENCOURAGE EXPRESSION OF FEELINGS R: PT HAS PLEASANT, BRIGHT AFFECT. HAS NOT EXHIBITED THREATENING OR COMBATIVE BEHAVIORS. WANDERS @ TIMES, BUT HAS NOT BEEN ACTIVELY EXIT-SEEKING. ABLE TO REDIRECT WITH VERBALIZATION. DENIES FEELINGS OF DEPRESSION, ANXIETY, SI/HI. NO HALLUCINATIONS OR DELUSIONS NOTED. POOR SHORT TERM MEMORY, ALERT AND ORIENTED TO SELF. PARTICIPATES IN GROUP ACTIVITIES, COOPERATIVE WITH ADLS. P: REDIRECT WITH VERBALIZATION, ENCOURAGE EXPRESSION OF FEELINGS.
[2018-11-25 18:33] VITALS: BP 105/78
[2018-11-25] MEDS: RISPERDAL PO SCH (20:11)
--- NOTE | 2018-11-26 06:12 | NUR ---
pirp- P -ALTERED THOUGHT PROCESS I- PROVIDE MEDICATION ORDERED,Q 15 MIN. MONITORING, PROVIDE SAFE AND SUPPORTIVE ENVIRONMENT AND PROVIDE 1:1 INTERVENTION ALLOWING PT. TO EXPRESS THOUGHTS AND FEELINGS. R- PT. ORIENTED TIMES THREE. DENIES DEPRESSION AND ANXIETY. ATTENDED GROUP,ATE SNACKS,INITIATED INTERACTION AND PARTICIPATED IN DAILY GOAL ACCOMPLISHMENT AND EXERCISES. TOOK MEDICATION ORDERED. PLEASANT AFFECT. PT. HAS RESTED IN BED WITH EYES CLOSED FOR3.75 HOURS TONIGHT. AWAKE ,LYING IN BED AT THIS TIME. P- WILL CONTINUE WITH CURRENT TX. PLAN.
[2018-11-26 08:44] VITALS: BP 148/76
[2018-11-26] MEDS ORDERED: PEPCID ONE (13:28)
--- NOTE | 2018-11-26 13:32 | NUR ---
REFLUX DR. BLANCO NOTIFIED OF PT SELF-REPORTING INCREASE IN ACID REFLUX, RECEIVED ORDERS FOR OT AND SCHEDULED PEPCID, SEE EMR.
[2018-11-26] MEDS: PEPCID PO SCH ×2 (13:34→20:06)
--- NOTE | 2018-11-26 17:50 | NUR ---
PIRP P: DEMENTIA I: PROVIDE SAFE AND SUPPORTIVE ENVIRONMENT, RE-ORIENT TO SURROUNDINGS NEEDED, Q15 MIN MONITORING, GIVE CLEAR AND SIMPLE INSTRUCTIONS, REDIRECT WITH VERBALIZATION, ASSESS FOR PSYCHOTIC SYMPTOMS, GIVE MEDICATIONS ORDERED, PROVIDE TASK-ORIENTED ACTIVITIES, MONITOR FOR CHANGES IN USUAL BEHAVIOR R: PT HAS CHEERFUL, BRIGHT AFFECT THROUGHOUT SHIFT. HAS NOT EXHIBITED THREATENING OR COMBATIVE BEHAVIORS. ABLE TO ANSWER QUESTIONS APPROPRIATELY, INITIATES INTERACTION WITH STAFF AND PEERS, TAKES MEDICATIONS ORDERED. DENIES FEELINGS OF DEPRESSION, ANXIETY, SI/HI. NO HALLUCINATIONS OR DELUSIONS NOTED. ABLE TO REDIRECT WITH VERBALIZATION REGARDING DISCHARGE PLANNING. P: CONTINUE TO INVOLVE PATIENT IN DISCHARGE PLANNING AND RE-ORIENT TO SURROUNDINGS NEEDED.
[2018-11-26 19:53] VITALS: BP 140/73
[2018-11-26] MEDS: DESYREL PO SCH (20:06)
[2018-11-26] MEDS: RISPERDAL PO SCH (20:06)
--- NOTE | 2018-11-27 05:32 | NUR ---
pirp- P- ALTERATION IN THOUGHT PROCESS I- PROVIDE MEDICATION ORDERED,Q 15 MIN. MONITORING AND PROVIDE SAFE AND SUPPORTIVE ENVIRONMENT R- PT. WAS ORIENTED TO NAME NOT YEAR AND STATED IT WAS DECEMBER. PLEASANT AFFECT. ATE SNACKS AND PARTICIPATED IN GROUP NAME 3 GAME. TOOK MEDICATION ORDERED. NO INAPPROPRIATE BEHAVIORS NOTED THIS SHIFT. RESTING IN BED WITH EYES CLOSED AT THIS TIME. P - WILL CONTINUE WITH CURRENT TX. PLAN.
[2018-11-27 07:15] VITALS: BP 101/68
[2018-11-27] MEDS: PEPCID PO SCH ×2 (08:31→20:13)
--- NOTE | 2018-11-27 17:38 | NUR ---
PIRP P: DEMENTIA I: Q15 MIN MONITORING, MONITOR FOR CHANGES IN USUAL BEHAVIOR, PROVIDE SAFE AND SUPPORTIVE ENVIRONMENT, RE-ORIENT TO SURROUNDINGS NEEDED, Q15 MIN MONITORING, GIVE CLEAR AND SIMPLE INSTRUCTIONS, REDIRECT WITH VERBALIZATION, ASSESS FOR PSYCHOTIC SYMPTOMS, GIVE MEDICATIONS ORDERED, PROVIDE TASK-ORIENTED ACTIVITIES R: PT HAS CHEERFUL, BRIGHT AFFECT. RESPONDS APPROPRIATELY TO APPROACH, INITIATES INTERACTION WITH STAFF AND PEERS. PARTICIPATES IN GROUP ACTIVITIES AND TAKES MEDICATIONS ORDERED. DENIES FEELINGS OF DEPRESSION, ANXIETY, SI/HI. NO HALLUCINATIONS OR DELUSIONS NOTED. ALERT AND ORIENTED TO SELF AND PLACE, FORGETFUL, EASILY REDIRECTED WITH VERBALIZATION. HAS NOT EXHIBITED THREATENING OR COMBATIVE BEHAVIORS. HAS NOT BEEN EXIT-SEEKING, HAS NOT WANDERED GOTTI THIS SHIFT. P: RE-ORIENT TO SURROUNDINGS AND SITUATION NEEDED.
[2018-11-27 19:34] VITALS: BP 106/59
[2018-11-27] MEDS: DESYREL PO SCH (20:13)
[2018-11-27] MEDS: RISPERDAL PO SCH (20:13)
--- NOTE | 2018-11-28 05:35 | NUR ---
-PIRP: P: Altered thought process: I: Provide medications as ordered by physician. Encourage attendance and participation of all groups. Allow patient to voice feelings and concerns. Assist patient in differentiating between internal and external reality. R: The patient presents with a pleasant affect. She interacts appropriately with staff and peers. She continues to have issues with baseline level of confusion as she has made multiple statements that she is driving home tonight. She has been easily reoriented to reality. The patient denies depression, suicidal or homicidal ideation, and hallucinations. She was compliant with evening medications. The patient has slept 5.5 hours as of this time. P: Continue current plan of care. Will continue to monitor patient and maintain safety
[2018-11-28 07:06] VITALS: BP 119/50
[2018-11-28] MEDS: PEPCID PO SCH ×2 (08:37→20:20)
--- NOTE | 2018-11-28 09:44 | NUR ---
DISCHARGE PLANNING: SS VISITED WITH [facility], WITH THE [facility] OFFICE WHOM STATED SHE HAS FOUND PT'S SISTER IN [place], [place] AND SHE HAS DEMENTIA AND IS IN A NURSING FACILITY CALLED [facility] THERE. SHE STATED HER SISTERS STEP DAUGHTER HAS AGREED TO BE PT'S GUARDIAN AND THEY ARE CURRENTLY IN THE PROCESS OF THAT, BUT WANTED THIS WORKER TO FAX PT'S CLINICAL SO SHE COULD SEND IT TO SOMEONE SO THEY COULD BE WORKING ON PLACEMENT FOR PT. SHE STATED [facility] HAS MULTIPLE NURSING FACILITIES AND WOULD START TRYING TO SECURE PLACEMENT BUT THEY WERE KIND OF UNSURE PT'S FINANCES AND WHAT SHE WOULD BE ABLE TO AFFORD. HERON FAXED OVER PT'S CLINICAL AND CALLED [facility] BUT UNFORTUNATELY THEY DO NOT HAVE BED AVAILABILITY AT THIS TIME. ONCE APS IS ABLE TO FIND PLACEMENT [facility] WILL TAKE PT TO THE [facility] [place] [place] WHERE [facility] WILL PICK HER UP AND TRANSPORT TO NURSING FACILITY AT THAT TIME. [facility] WORKING WITH [facility] TO SECURE PLACEMENT FOR PT.
--- NOTE | 2018-11-28 14:42 | PRM.PN ---
Mood: DENIES FEELING DEPRESSED, MOOD IS "HAPPY" Sleep: SLEPT 6 HOURS LAST NIGHT, NORMALLY SLEEPING WELL Appetite: NORNAL APPETITE Suidical thoughts: NONE REPORTED Homicidal thoughts: NONE REPORTED Recent stressors: STRESS OF MENTAL ILLNESS Family support: LIMITED, LIVED BY HERSELF, NEEDS THE STATE TO GET GUARDIANSHIP Aggressive Behavior: NONE REPORTED Ability to Perform ADL'sc: YES Psychotic sympstoms: DELUSIONAL THINKING RELATED TO DEMENTIA, DENIES PARANOIA, DENIES HALLUCINAT Manic Symptoms: NONE REPORTED Living situation: LIVES IN [place], [place] Illicit Drug usec: NONE REPORTED Alcoholo use: NONE REPORTED Tobacco use: NONE REPORTED Anxity Symptoms: MILD ANXIETY LEVEL Anger/Irritablility: LIMITED ANGER AND IRRITABILITY Muscle Strength & Tone: WNL Gait & Station: WN Appearance: Casual attire, Normal weight Attitude & Behaviour: Cooperative/Pleasant, Good eye contact Mood & Affect: Euthymic/appr/congruent Orientation: Disoriented to place, Disoriented to time, Disoriented to situation Attention/Concentration: Poor attention, Poor concentration Speech: Reg rate/vol/rhyth/prosod Judgement/Insight: Poor judgement, Poor insight Thought Process: Linear/goal directed Language: [place] Thought content/Abnormal/Psych: Delusions Fund of Knowledge: Other Associations: MELVA Memory (recent and remote): Recent memory repaired, Remote memory repaired Constitutional: None Neurological: None Psychiatric: None [place] I: DELUSIONAL DISORDER, ANXIETY, DEMENTIA, INSOMNIA [place] II: DEFERRED [place] III: REFER TO PMH/MEDICAL CHART [place] IV: STRESS OF MENTAL ILLNESS [place] V: GAF=25 Assessment/Plan Assessment/Plan Assessment/Plan Vital Signs Date Time Temp Pulse Resp B/P (MAP) Pulse Ox O2 Delivery O2 Flow Rate FiO2 11/28/18 07:06 98.1 66 16 119/50 (73) 95 Room Air 98.1 Allergies Coded Allergies No Known Allergies (Unverified11/20/18) I & O 11/20/18 14:46 Thru 11/28/18 14:06 Intake Total 27775 ml Balance 26722 ml Vital Signs Date Time Temp Pulse Resp B/P (MAP) Pulse Ox O2 Delivery O2 Flow Rate FiO2 11/24/18 09:19 98.1 78 17 117/77 (90) 99 Room Air 98.1 Allergies Coded Allergies Type Severity Reaction Last Updated Verified No Known Allergies 11/20/18 No Current Medications Medications (Trade) Dose Ordered Sig/Jany PRN Reason Start Time Stop Time Status Last Admin Risperidone (Risperdal) 0.25 mg HS 11/23/18 21:00 12/23/18 20:59 11/23/18 20:26 Intake and Output 11/24/18 07:00 Intake Total 1946 ml Balance 1946 ml Intake Oral 1946 ml # Voids 2 THE PATIENT WAS SEEN BY DEMETRIA SORENSEN MD VIA TELEMEDICINE EQUIPMENT (SUPPORTED BY [facility]) ALONG WITH THE TREATMENT TEAM. SHE IS DOING WELL OVERALL PER STAFF. SHE HAS BEEN TAKING HER MEDICATIONS WITHOUT SIDE EFFECTS. SHE DENIES SI OR HI. SHE HAS SHOWN SATISH IMPROVEMENT IN HER MEMORY. SHE DENIES FEELING DEPRESSED. SHE IS EATING AND SLEEPING WELL. SHE SLEPT 6 HOURS LAST NIGHT. SHE HAS BEEN CALM AND COOPERATIVE PER STAFF. SHE HAS SHOWN NO AGGRESSIVE BEHAVIOR. SHE DENIES ANXIOUS SYMPTOMS. SHE DENIES SI/HI/AV/VH. SHE REPORTS A NORMAL ENERGY TODAY. SHE CONTINUES TO STRUGGLE WITH CONFUSION. THE PATIENT HAS LIMITED FAMILY SUPPORT. THE PATIENT WAS DISORIENTED TO PLACE, TIME, AND SITUATION. THE PATIENT WAS DRIVING IN THE RECENT PAST. SHE IS NOT SAFE TO DRIVE BY HERSELF. ASSESSMENT: DELUSIONAL DISORDER, DEMENTIA W/O BEHAVIORAL DISTURBANCES, GENERALIZED ANXIETY DISORDER, INSOMNIA PLAN: 1. CONTINUE BEHAVIORAL HEALTH MANAGEMENT. STAFF AGREEABLE WITH THE PLAN. 2. CONTINUE CURRENT MEDICATIONS PRESCRIBED. STAFF AGREEABLE WITH PLAN 3. ALL PATIENT QUESTIONS ANSWERED RELATED TO MEDICATIONS, PLAN OF CARE, AND EXPECTED OUTCOMES. 4. SAFETY PLAN DISCUSSED. 5. 16 MINUTES SPENT IN SUPPORTIVE THERAPY AND INSIGHT ORIENTED THERAPY. Problems: (1) Delusional disorder Status: Acute ICD Code: F22 - Delusional disorders SNOMED: [id number] Plan Vital Signs Date Time Temp Pulse Resp B/P (MAP) Pulse Ox O2 Delivery O2 Flow Rate FiO2 11/24/18 09:19 98.1 78 17 117/77 (90) 99 Room Air 98.1 Allergies Coded Allergies Type Severity Reaction Last Updated Verified No Known Allergies 11/20/18 No Current Medications Medications (Trade) Dose Ordered Sig/Jany PRN Reason Start Time Stop Time Status Last Admin Risperidone (Risperdal) 0.25 mg HS 11/23/18 21:00 12/23/18 20:59 11/23/18 20:26 Intake and Output 11/24/18 07:00 Intake Total 1946 ml Balance 1946 ml Intake Oral 1946 ml # Voids 2 THE PATIENT WAS SEEN BY HEATH VARELA VIA TELEMEDICINE EQUIPMENT (SUPPORTED BY [facility]) ALONG WITH THE TREATMENT TEAM. SHE IS DOING WELL OVERALL. SHE IS EATING AND SLEEPING WELL. SHE HAS BEEN CALM AND COOPERATIVE. SHE DENIES DEPRESSIVE AND ANXIOUS SYMPTOMS. SHE DENIES SI/HI/AV/VH. SHE REPORTS LOW ENERGY TODAY. RISPERDAL WAS STARTED YESTERDAY. SHE CONTINUES TO BE CONFUSED. ASSESSMENT: DELUSIONAL DISORDER, DEMENTIA W/O BEHAVIORAL DISTURBANCES PLAN: 1. CONTINUE BEHAVIORAL HEALTH MANAGEMENT. 2. CONTINUE CURRENT MEDICATIONS PRESCRIBED. STAFF AGREEABLE WITH PLAN 3. ALL PATIENT QUESTIONS ANSWERED RELATED TO MEDICATIONS, PLAN OF CARE, AND EXPECTED OUTCOMES. 4. SAFETY PLAN DISCUSSED. DEMETRIA SORENSEN IV, MD Nov 28, 2018 14:42
--- NOTE | 2018-11-28 17:20 | NUR ---
PIRP P: DEMENTIA I: MONITOR FOR CHANGES IN USUAL BEHAVIOR, Q15 MIN MONITORING, GIVE CLEAR AND SIMPLE INSTRUCTIONS, ASSESS FOR PSYCHOTIC SYMPTOMS, ASSIST WITH DIFFERENTIATING BETWEEN INTERNAL AND EXTERNAL REALITY, REDIRECT WITH VERBALIZATION, PROVIDE TASK-ORIENTED ACTIVITIES, RE-ORIENT TO SURROUNDINGS NEEDED R: PT HAS REMAINED INT HE DAY ROOM AND HAS PARTICIPATED IN GROUP THERAPY WITHOUT DIFFICULTY. STATES DEPRESSION 0/10, ANXIETY 0/10, DENIES SI/HI, OR AUDITORY/VISUAL HALLUCINATIONS. PT IS ALERT AND ORIENTED X3 AT TIMES. SHE REMEMBERS THAT SHE IS IN [place] AT THE HOSPITAL BECAUSE "HER MEMORY IS NOT SO GOOD, BUT IT'S COMING BACK." EXPLAINED TO PT THAT SHE IS FROM [place] AND THAT SHE GOT LOST WHILE DRIVING AND ARRIVED IN [facility]. WHEN ASKED PT WHO WAS TAKING CARE OF HER DOG THE PT STATED "A NEIGHBOR." PT HAS NOT WONDERED IN THE [place]TI NOR HAS SHE STATED THAT SHE NEEDS TO GO HOME. PT WAS ABLE TO TELL ME WHO THE PRESIDENT IS, WHERE SHE USE TO WORK, AND WHAT KIND OF JOB SHE HAD. P:CONTINUE WITH COGNITIVE SKILLS THERAPY AND CURRENT PLAN OF CARE.
[2018-11-28 19:31] VITALS: BP 130/51
[2018-11-28] MEDS: DESYREL PO SCH (20:20)
[2018-11-28] MEDS: RISPERDAL PO SCH (20:20)
--- NOTE | 2018-11-29 04:14 | NUR ---
-PIRP: P: Altered thought process: I: Provide medications as ordered by physician. Encourage attendance and participation of all groups. Allow patient to voice feelings and concerns. Assist patient in differentiating between internal and external reality. R: The patient presents with a bright and pleasant affect. She interacts appropriately with staff and peers. The patient denies depression, suicidal or homicidal ideation, and hallucinations. She was compliant with evening medications. The patient is able to state that she is in a hospital in [place], [place] but has poor insight into reason for admission. She has difficulty falling asleep, and has done so at approximately 0100 the past two nights. The patient's confusion increases as the night progresses. She was observed repeatedly opening and shutting door to room and bathroom and was trying to figure out how to lock the doors, despite being reminded that door needs to remain open. She was also observed turning multiple lights on and off in room. She has asked multiple times if she is safe in her room. P: Continue current plan of care. Will continue to monitor patient and maintain safety
[2018-11-29] MEDS: PEPCID PO SCH ×2 (09:00→20:06)
--- NOTE | 2018-11-29 10:05 | NUR ---
TELEMED PT SPOKE WITH DR VARELA. NO NEW ORDERS RECEIVED AT THIS TIME.
--- NOTE | 2018-11-29 10:10 | PRM.PN ---
Mood: DENIES DEPRESSIVE SYMPTOMS Sleep: SLEPT 4 HOURS Appetite: GOOD Suidical thoughts: DENIES Homicidal thoughts: DENIES Recent stressors: COGNITIVE DECLINE Family support: POOR Aggressive Behavior: NONE NOTED Ability to Perform ADL'sc: FAIR Psychotic sympstoms: DENIES Manic Symptoms: NONE NOTED Living situation: ALONE Illicit Drug usec: NONE Alcoholo use: HISTORY OF ALCOHOL ABUSE Tobacco use: NONE Family,PT,Surgical,&Current HX: (1) Delusional disorder Anxity Symptoms: DENIES Anger/Irritablility: NONE NOTED Muscle Strength & Tone: WNL Gait & Station: WNL Appearance: Well groomed/hygience, Appears younger Attitude & Behaviour: Cooperative/Pleasant Mood & Affect: Euthymic/appr/congruent Orientation: Fully oriented per interv Attention/Concentration: Good attention, Good concentration Speech: Reg rate/vol/rhyth/prosod Judgement/Insight: Fair judgement, Fair insight Thought Process: Linear/goal directed Language: Syrian Thought content/Abnormal/Psych: None/normal Fund of Knowledge: Other (LIMITED) Associations: WNL/Normal Associations Memory (recent and remote): Recent memory repaired Constitutional: Insomnia Neurological: None Psychiatric: None [place] I: DELUSIONAL DISORDER [place] II: DEFERRED [place] III: SEE MEDICAL CHART [place] IV: STRESS OF MENTAL ILLNESS [place] V: 40 Assessment/Plan Assessment/Plan Plan Vital Signs Date Time Temp Pulse Resp B/P (MAP) Pulse Ox O2 Delivery O2 Flow Rate FiO2 11/28/18 19:31 97.6 92 19 130/51 (77) 96 Room Air 97.6 Allergies Coded Allergies Type Severity Reaction Last Updated Verified No Known Allergies 11/20/18 No Current Medications Medications (Trade) Dose Ordered Sig/Jany PRN Reason Start Time Stop Time Status Last Admin Famotidine (Pepcid) 20 mg BID 11/26/18 14:00 12/26/18 13:59 11/28/18 20:20 Trazodone HCl (Desyrel) 50 mg HS 11/26/18 21:00 12/26/18 20:59 11/28/18 20:20 Intake and Output 11/29/18 07:00 Intake Total 2596 ml Balance 2596 ml Intake Oral 2596 ml # Voids 5 # Bowel Movements 1 THE PATIENT WAS SEEN BY HEATH VARELA VIA TELEMEDICINE EQUIPMENT (SUPPORTED BY [facility]) ALONG WITH THE TREATMENT TEAM. SHE REPORTS SLEEPING WELL. SHE IS EATING WELL. SHE DENIES ANY PROBLEMS WITH HER MEDICATIONS. SHE DOES NOT APPEAR SEDATED. SHE DENIES DEPRESSIVE AND ANXIOUS SYMPTOMS. SHE DENIES SI/HI/AV/ VH. ENERGY IS FAIR. SHE IS SOMEWHAT MORE ORIENTED, BUT CONTINUES TO HAVE SOME CONFUSION. SHE HAS NOT REQUIRED ANY PRN MEDICATIONS. ASSESSMENT: DELUSIONAL DISORDER. PLAN: 1. CONTINUE BEHAVIORAL HEALTH MANAGEMENT. 2. CONTINUE CURRENT MEDICATIONS PRESCRIBED. STAFF AGREEABLE WITH PLAN 3. ALL PATIENT QUESTIONS ANSWERED RELATED TO MEDICATIONS, PLAN OF CARE, AND EXPECTED OUTCOMES. 4. SAFETY PLAN DISCUSSED. HEATH VARELA NP Nov 29, 2018 10:10
[2018-11-29 10:47] VITALS: BP 111/48
--- NOTE | 2018-11-29 14:20 | NUR ---
FOLLOW UP WITH APS: HERON HAS CALLED AND LEFT MESSAGES WITH LEONIDES [facility] REGARDING PLACEMENT FOLLOW UP BUT HAS NOT BEEN ABLE TO GET A HOLD OF HER.
--- NOTE | 2018-11-29 17:26 | NUR ---
PIRP P: DEMENTIA I: MONITOR FOR CHANGES IN USUAL BEHAVIOR, Q15 MIN MONITORING, GIVE CLEAR AND SIMPLE INSTRUCTIONS, ASSESS FOR PSYCHOTIC SYMPTOMS, ASSIST WITH DIFFERENTIATING BETWEEN INTERNAL AND EXTERNAL REALITY, REDIRECT WITH VERBALIZATION, PROVIDE TASK-ORIENTED ACTIVITIES, RE-ORIENT TO SURROUNDINGS NEEDED R: PT RATED D-0/10; A-0/10; SI-0/10. HER MOOD IS HAPPY AND PT STATES SHE FEELS ENERGETIC. PT IS ALERT AND ORIENTED TO NAME AND PLACE. PT PARTICIPATED WELL IN MUSIC THERAPY AND GROUP FOR COGNITIVE SKILLS TRAINING. PT HAS NOT BEEN AN ELOPEMENT RISK DURING THIS SHIFT. PT AGREED TO TAKE A SHOWER TODAY AND WAS ABLE TO DO ADL'S WITH MINIMAL ASSISTANCE. P:CONTINUE WITH COGNITIVE SKILLS THERAPY AND CURRENT PLAN OF CARE.
[2018-11-29 19:16] VITALS: BP 123/59
[2018-11-29] MEDS: RISPERDAL PO SCH (20:06)
[2018-11-29] MEDS: DESYREL PO SCH (20:07)
[2018-11-29] MEDS ORDERED: BUSPAR ONE (21:45)
--- NOTE | 2018-11-30 05:53 | NUR ---
-PIRP: P: Altered thought process: I: Provide medications as ordered by physician. Encourage attendance and participation of all groups. Allow patient to voice feelings and concerns. Assist patient in differentiating between internal and external reality. R: The patient presents with a bright and pleasant affect. She interacts appropriately with staff and peers. She continues to deny depression, suicidal or homicidal ideation, and hallucinations. She was compliant with evening medications. The patient is able to state that she is in a hospital in [place], [place] but has poor insight into reason for admission and states that she is here to "visit a friend that was admitted". She continues having difficulty falling asleep. The patient's confusion increases as the night progresses, though she remains pleasant and cooperative P: Continue current plan of care. Will continue to monitor patient and maintain safety
[2018-11-30 08:10] VITALS: BP 127/52
--- NOTE | 2018-11-30 08:40 | PRM.PN ---
Mood: "ALRIGHT", DENIES FEELING DEPRESSED, STRUGGLES WITH CONFUSION Sleep: SLEPT 5.25 HOURS LAST NIGHT, TOOK NO NAPS YESTERDAY Appetite: NORMAL APPETITE, EATS 100% OF HER MEALS Suidical thoughts: NONE REPORTED Homicidal thoughts: NONE REPORTED Recent stressors: STRESS OF MENTAL ILLNESS Family support: LIMITED, [facility] WORKING ON GUARDIANSHIP Aggressive Behavior: NONE REPORTED Ability to Perform ADL'sc: YES Psychotic sympstoms: NONE REPORTED, DENIES HALLUCINATIONS, DENIES PARANOIA Manic Symptoms: NONE REPORTED Living situation: WAS LIVING AT HOME BY HERSELF IN [place] Illicit Drug usec: NONE REPORTED Alcoholo use: NONE REPORTED Tobacco use: NONE REPORTED Anxity Symptoms: MODERATE ANXIETY LEVEL Anger/Irritablility: LIMITED ANGER AND IRRITABILTIY Muscle Strength & Tone: WNL Gait & Station: WNL Appearance: Well groomed/hygience, Casual attire, Normal weight, Appears age stated Attitude & Behaviour: Cooperative/Pleasant, Good eye contact Mood & Affect: Euthymic/appr/congruent Orientation: Disoriented to place, Disoriented to time, Disoriented to situation Attention/Concentration: Poor attention, Poor concentration Speech: Reg rate/vol/rhyth/prosod Judgement/Insight: Poor judgement, Poor insight Thought Process: Linear/goal directed Language: Lao Thought content/Abnormal/Psych: Delusions Fund of Knowledge: Other Associations: MELVA Memory (recent and remote): Recent memory repaired, Remote memory repaired Constitutional: None Neurological: None Psychiatric: None [place] I: DELUSIONAL DISORDER, ANXIETY, DEMENTIA WITH BEHAVIOR PROBLEMS [place] II: DEFERRED [place] III: REFER TO PMH/MEDICAL CHART [place] IV: STRESS OF MENTAL ILLNESS, LIMITED SOCIAL SUPPORT [place] V: GAF=25 Assessment/Plan Assessment/Plan Assessment/Plan Vital Signs Date Time Temp Pulse Resp B/P (MAP) Pulse Ox O2 Delivery O2 Flow Rate FiO2 11/30/18 08:10 98.1 72 18 127/52 (77) 97 Room Air 98.1 Allergies Coded Allergies No Known Allergies (Unverified11/20/18) I & O 11/20/18 14:46 Thru 11/30/18 08:11 Intake Total 97418 ml Balance 07221 ml Vital Signs Date Time Temp Pulse Resp B/P (MAP) Pulse Ox O2 Delivery O2 Flow Rate FiO2 11/28/18 19:31 97.6 92 19 130/51 (77) 96 Room Air 97.6 Allergies Coded Allergies Type Severity Reaction Last Updated Verified No Known Allergies 11/20/18 No Current Medications Medications (Trade) Dose Ordered Sig/Jany PRN Reason Start Time Stop Time Status Last Admin Famotidine (Pepcid) 20 mg BID 11/26/18 14:00 12/26/18 13:59 11/28/18 20:20 Trazodone HCl (Desyrel) 50 mg HS 11/26/18 21:00 12/26/18 20:59 11/28/18 20:20 Intake and Output 11/29/18 07:00 Intake Total 2596 ml Balance 2596 ml Intake Oral 2596 ml # Voids 5 # Bowel Movements 1 THE PATIENT WAS SEEN BY DEMETRIA SORENSEN MD VIA TELEMEDICINE EQUIPMENT (SUPPORTED BY [facility]) ALONG WITH THE TREATMENT TEAM. THE PATIENT REPORTS HER MOOD IS "ALRIGHT." THE PATIENT DENIES FEELING DEPRESSED. THE PATIENT REPORTS SLEEPING WELL. THE PATIENT HAS A NORMAL APPETITE. THE PATIENT HAS BEEN COMPLIANT WITH HER MEDICATIONS. THE PATIENT IS NOT OVER-SEDATED FROM HER MEDICATIONS. THE PATIENT HAS A MODERATE ANXIETY LEVEL. SHE HAS SOME SUNDOWNING BEHAVIOR THAT STARTS AROUND 4:30PM. SHE IS RE-DIRECTABLE PER STAFF. SHE DENIES SI OR HI. SHE DENIES AUDITORY OR VISUAL HALLUCINATIONS. THE PATIENT DENIES FEELING PARANOID. THE PATIENT IS DISORIENTED TO PLACE, TIME, AND SITUATION. ASSESSMENT: DELUSIONAL DISORDER, GENERALIZED ANXIETY DISORDER, DEMENTIA WITH BEHAVIOR PROBLEMS PLAN: 1. CONTINUE BEHAVIORAL HEALTH MANAGEMENT. 2. CONTINUE CURRENT MEDICATIONS PRESCRIBED. STAFF AGREEABLE WITH PLAN 3. ALL PATIENT QUESTIONS ANSWERED RELATED TO MEDICATIONS, PLAN OF CARE, AND EXPECTED OUTCOMES. 4. SAFETY PLAN DISCUSSED. 5. BUCKLE GLUER WORKING ON PLACEMENT. [place] WORKING ON GUARDIANSHIP FOR THE PATIENT. Problems: (1) Delusional disorder Status: Acute ICD Code: F22 - Delusional disorders SNOMED: [id number] Plan Vital Signs Date Time Temp Pulse Resp B/P (MAP) Pulse Ox O2 Delivery O2 Flow Rate FiO2 11/28/18 19:31 97.6 92 19 130/51 (77) 96 Room Air 97.6 Allergies Coded Allergies Type Severity Reaction Last Updated Verified No Known Allergies 11/20/18 No Current Medications Medications (Trade) Dose Ordered Sig/Jany PRN Reason Start Time Stop Time Status Last Admin Famotidine (Pepcid) 20 mg BID 11/26/18 14:00 12/26/18 13:59 11/28/18 20:20 Trazodone HCl (Desyrel) 50 mg HS 11/26/18 21:00 12/26/18 20:59 11/28/18 20:20 Intake and Output 11/29/18 07:00 Intake Total 2596 ml Balance 2596 ml Intake Oral 2596 ml # Voids 5 # Bowel Movements 1 THE PATIENT WAS SEEN BY HEATH VARELA VIA TELEMEDICINE EQUIPMENT (SUPPORTED BY [facility]) ALONG WITH THE TREATMENT TEAM. SHE REPORTS SLEEPING WELL. SHE IS EATING WELL. SHE DENIES ANY PROBLEMS WITH HER MEDICATIONS. SHE DOES NOT APPEAR SEDATED. SHE DENIES DEPRESSIVE AND ANXIOUS SYMPTOMS. SHE DENIES SI/HI/AV/ VH. ENERGY IS FAIR. SHE IS SOMEWHAT MORE ORIENTED, BUT CONTINUES TO HAVE SOME CONFUSION. SHE HAS NOT REQUIRED ANY PRN MEDICATIONS. ASSESSMENT: DELUSIONAL DISORDER. PLAN: 1. CONTINUE BEHAVIORAL HEALTH MANAGEMENT. 2. CONTINUE CURRENT MEDICATIONS PRESCRIBED. STAFF AGREEABLE WITH PLAN 3. ALL PATIENT QUESTIONS ANSWERED RELATED TO MEDICATIONS, PLAN OF CARE, AND EXPECTED OUTCOMES. 4. SAFETY PLAN DISCUSSED. DEMETRIA SORENSEN IV, MD Nov 30, 2018 08:40
--- NOTE | 2018-11-30 08:57 | DIET.OP ---
Nutrition Asmt/Malnutrit 2-17 Actual Date of Review: Nov 23, 2018 Nutritional Screening: Malnutr/Diet Consult Diagnosis: Altered Mental Status Pertinent Medical Hx/Surgical: Per MD: Hypertension by history, Possible alcohol abuse, Malnutrition, Memory loss. Subjective Information: This patient has a great appetite. She has some significant memory loss when it comes to how she got to the unit. Patient is unsure of here normal weight, but she has been weighed a couple times since admission. Current Diet Order/Nutrition S: Regular Pertinent Meds N/A Pertinent Labs N/A Height (Feet): 5 Height (Inches): 2 Current Weight: 109 Usual Weight: 104 %UBW: 104 %IBW: 99 Weight Status: Underweight GI Symptoms: None Food Allergies: No Cultural/Ethnic/Amish Gisela: None reported Usual Diet at Home: Unable to state Current %PO: Good(75-100%) BEE in Kcals: Use Current Weight Calories/Kcals/Kg: MsJ * 1.2-1.3 Kcals Calculated: 0009-7408 Protein: Use Current Weight Protein g/k.8-1.0 g/kg Protein Calculated: 39g-49g Fluid: ml: 2484-9136 or 1 mL/kcal Nutritional Problem: Nutr. Problems Present Problems: Underweight Etiology: Inadequate energy intake Signs/Symptoms: Dementia, BMI 20.0, Moderate to severe muscle wasting, Moderate to severe fat loss Body Fat Depletion (Severe): Mod to Severe Depletion (orbital fat pads, triceps , lower ribs) Muscle Mass (Severe): Mod to Severe Depletion (temporal, clavicle, interosseous ) Protein-Calorie Malnutrition: Severe Is there a minimum of two crit: Yes RD Comments: Intervention: 1. Continue with the current diet order 2. Recommended Ensure BID for increased calories and protein Monitor/evaluate: 1. Weight Status 2. po intake Expected Outcomes Goal: 1. The patient will consume at least 65% of meals, snacks, and supplements provided to meet 100% of estimated energy needs over the next 5 days Discharge plan: 1. Discharge planning in progress Malnutrtion/Nutrition Risk Edu: No Due to the patients mental status, education at this time is not appropriate. Will continue to provide Ensure Plus to ensure more than adequate calories and protein are consumed for weight maintenance/gain. ELIS PANDYA RD Nov 30, 2018 08:57
[2018-11-30] MEDS: PEPCID PO SCH ×2 (09:22→20:42)
--- NOTE | 2018-11-30 16:47 | NUR ---
D/C PLANNING: DURING TREATMENT TEAM PT STATED SHE HAS A CPA THAT ASSIST WITH HER FINANCES. PT STATED HIS NAME WAS CALOS SUERO. PT ALSO DISCLOSED SHE BANKED AT [facility]. PT WILL BE GOING TO [place] UP[place] DISCHARGE AND APS HAS BEEN UNABLE TO LOOK AT HER FINANCES TO SEE WHAT SHE WOULD BE ABLE TO AFFORD AND IF SHE WOULD QUALIFY FOR SOONER CARE. HERON REACHED OUT TO CALOS PIO'S OFFICE TO SEE IF THEY WOULD BE ABLE TO ASSIST IN OBTAINING PT'S FINANCIAL STANCE. HERON LEFT A MESSAGE AND WHEN A WORKER FROM HIS OFFICE CALLED BACK THEY STATED "CURRENTLY SHE HAS NO MONEY WITH US. OVER THE YEARS IT HAS DWINDLED DOWN, NOT THAT SHE HAD A LOT WITH US TO BEGIN WITH. SHE DID CALL IN MAY TRYING TO GET $400 AND SHE DIDN'T EVEN HAVE THAT AT THAT TIME. IT WAS HEARD THAT THERE WAS A MAN IN THE BACKGROUND DEMANDING THE MONEY BE SENT TO HER BECAUSE SHE OWNED HIM MONEY. FAS WE CAN SEE THE ONLY ASSET SHE WOULD HAVE IS HER HOME BECAUSE [facility] I WAS ABLE TO TELL SHE OWNS HER HOME". HERON LET APS KNOW OF FINDINGS. HERON ATTEMPTED TO REACH OUT TO PT'S BANK MULTIPLE TIMES BUT WAS UNABLE TO GET A HOLD OF A WORKER. HERON WILL REATTEMPT TO GET A HOLD OF THE HR GENERALIST TO SEE IF WE COULD ACCESS HER ACCOUNT TO SEE IF PT HAD FUNDS TO PRIVATE PAY FOR [facility] WHILE THEY WORK ON GETTING PT MEDICAID.
--- NOTE | 2018-11-30 16:52 | NUR ---
PIRP: P: ALTERED THOUGHT PROCESS I: Provide medications as ordered by physician. Encourage attendance and participation of all groups. Allow patient to voice feelings and concerns. Re orient patient as needed. R: Patient has taken all medications as ordered. She has participated in groups and has denied suicidal ideation, denied hallucinations and auditory hallucinations. She has participated in all groups and has been in day room the majority of the day. P: Continue with current plan of care.
[2018-11-30 19:15] VITALS: BP 120/60
[2018-11-30] MEDS: DESYREL PO SCH (20:42)
[2018-11-30] MEDS: RISPERDAL PO SCH (20:42)
--- NOTE | 2018-12-01 00:51 | NUR ---
PIRP- P-ALTERED THOUGHT PROCESS I- PROVIDE SAFE AND SUPPORTIVE ENVIRONMENT.PROVIDE MEDICATION ORDERED AND Q 15 MIN. MONITORING. R- PT. ORIENTED TO NAME BUT STATED IT WAS DECEMBER AND 2018. CHEERFUL AFFECT. TOOK MEDICATION ORDERED. DENIES HALLUCINATIONS. ATTENDED GROUP AND PARTICIPATED IN GROUP ACTIVITIES. DENIES DEPRESSION AND ANXIETY. PT. HAS RESTED IN BED WITH EYES CLOSED FOR 2.5 HOURS TONIGHT. SHE IS AWAKE AND UP WALKING IN HER ROOM AT THIS TIME. P- WILL CONTINUE WITH CURRENT [place]. PLAN.
--- NOTE | 2018-12-01 06:14 | NUR ---
BEHAVIORS PT. WAS UP FOR AN HOUR LAST NIGHT DURING THE NIGHT. WALKING AROUND IN HER ROOM TAKING TO HERSELF.
[2018-12-01 07:10] VITALS: BP 117/56
[2018-12-01] MEDS: PEPCID PO SCH ×2 (08:15→20:38)
--- NOTE | 2018-12-01 09:53 | NUR ---
TELEMED PT WAS SEEN BY Keira VARELA, SWETHA, CAR DUMPER OPERATOR. NO NEW ORDERS RECEIVED @ THIS TIME.
--- NOTE | 2018-12-01 10:04 | PRM.PN ---
Mood: "I'M GOOD" DENIES DEPRESSION. Sleep: SLEPT 6.75 HOURS Appetite: GOOD Suidical thoughts: DENIES Homicidal thoughts: DENIES Recent stressors: COGNITIVE DECLINE Family support: NONE Aggressive Behavior: NONE NOTED Ability to Perform ADL'sc: FAIR Psychotic sympstoms: DELUSIONAL THINKING DUE TO MEMORY DEFICIT Manic Symptoms: NONE NOTED Living situation: ALONE, SEEKING PLACEMENT Illicit Drug usec: NONE Alcoholo use: NONE Tobacco use: NONE Family,PT,Surgical,&Current HX: (1) Delusional disorder Anxity Symptoms: DENIES Anger/Irritablility: NONE NOTED Muscle Strength & Tone: WNL Gait & Station: WN Appearance: Well groomed/hygience, Casual attire, Normal weight, Appears age stated Attitude & Behaviour: Cooperative/Pleasant, Good eye contact Mood & Affect: Euthymic/appr/congruent Orientation: Disoriented to place, Disoriented to time, Disoriented to situation Attention/Concentration: Good attention, Fair concentration Speech: Reg rate/vol/rhyth/prosod Judgement/Insight: Fair judgement, Fair insight Thought Process: Linear/goal directed Language: Belarusian Thought content/Abnormal/Psych: None/normal Fund of Knowledge: WNL Associations: WNL/Normal Associations Memory (recent and remote): Recent memory repaired, Remote memory repaired Constitutional: None Neurological: None Psychiatric: None [place] I: DELUSIONAL DISORDER [place] II: DEFERRED [place] III: SEE MEDICAL CHART/PMH [place] IV: COGNITIVE DECLINE [place] V: 40 Assessment/Plan Assessment/Plan Plan Vital Signs Date Time Temp Pulse Resp B/P (MAP) Pulse Ox O2 Delivery O2 Flow Rate FiO2 12/01/18 07:10 98.2 70 20 117/56 (76) 95 Room Air 98.2 Allergies Coded Allergies Type Severity Reaction Last Updated Verified No Known Allergies 11/20/18 No Intake and Output 12/01/18 07:00 Intake Total 2499 ml Balance 2499 ml Intake Oral 2499 ml # Voids 7 # Bowel Movements 1 THE PATIENT WAS SEEN BY HEATH VARELA VIA TELEMEDICINE EQUIPMENT (SUPPORTED BY [facility]) ALONG WITH THE TREATMENT TEAM. SHE IS EATING AND SLEEPING WELL. SHE DENIES DEPRESSIVE AND ANXIOUS SYMPTOMS. SHE IS SLEEPING AND EATING WELL. SHE IS COOPERATIVE AND PLEASANT. SHE HAS NOT REQUIRED ANY PRN MEDICATIONS. SHE REPORTS HAVING GOOD ENERGY MOST DAYS. SHE IS TOLERATING HER MEDICATIONS WELL. SHE DOES NOT APPEAR SEDATED. ASSESSMENT: DELUSIONAL DISORDER PLAN: 1. CONTINUE BEHAVIORAL HEALTH MANAGEMENT. 2. CONTINUE CURRENT MEDICATIONS PRESCRIBED. STAFF AGREEABLE WITH PLAN 3. ALL PATIENT QUESTIONS ANSWERED RELATED TO MEDICATIONS, PLAN OF CARE, AND EXPECTED OUTCOMES. 4. SAFETY PLAN DISCUSSED. HEATH VARELA NP Dec 01, 2018 10:04
--- NOTE | 2018-12-01 11:23 | NUR ---
APS FOLLOW UP: LEONIDES WITH APS CALLED THIS WORKER BACK AND STATED SHE HAD BEEN OUT SICK, BUT [facility] HAS ACCEPTED PT AT THIS TIME. THEY ARE CURRENTLY TRYING TO GET TRANSPORTATION SECURED. CURRENTLY PENDING WHEN APS IS ABLE TO SECURE TRANSPORTATION TO GET PT BACK TO [place] SO THEY CAN PICK HER UP. MALINDA LUDWIG WITH [place] [facility]PS CALLED AND ASKED IF THE HOSPITAL WOULD BE ABLE TO TRANSPORT PT TO THE [place] B[place]. THIS WORKER LET HER KNOW WE ONLY PROVIDE TRANSPORTATION IN TOWN AT THIS TIME, BUT [facility] MAY BE ABLE TO ASSIST PT, AND PROVIDED HER WITH THAT NUMBER. SW TO CONTINUE TO FOLLOW.
--- NOTE | 2018-12-01 13:20 | NUR ---
APS: APS CALLED THIS WORKER AND STATED THAT PT STEP NIECE THAT HAD ORIGINAL AGREED TO TAKE GUARDIAN OF PT HAS DECLINED SO UNFORTUNATELY THE FACILITY HAS DECLINED PT. LEONIDES ASKED THIS WORKER IF SHE WOULD SEND PT'S CLINICAL TO [facility] AGAIN AND THEN ALSO TO [facility] IN [place], [facility] IN [place], AND [facility] IN [place]. SW CALLED FACILITIES AND FAXED CLINICAL OVER. CURRENTLY PENDING ACCEPTANCE AT THIS TIME.
--- NOTE | 2018-12-01 18:12 | NUR ---
PIRP P: DEMENTIA I: MONITOR FOR CHANGES IN USUAL BEHAVIOR, Q15 MIN MONITORING, RE-ORIENT TO SURROUNDINGS, PROVIDE SAFE AND SUPPORTIVE ENVIRONMENT, PROVIDE TASK-ORIENTED ACTIVITIES, GIVE CLEAR AND SIMPLE INSTRUCTIONS, ASSESS FOR HALLUCINATIONS AND DELUSIONS, PROVIDE 1:1 TO ENCOURAGE EXPRESSION OF FEELINGS, GIVE MEDICATIONS ORDERED R: PT HAS BRIGHT, PLEASANT AFFECT. DENIES FEELINGS OF DEPRESSION, ANXIETY, SI/HI. NO HALLUCINATIONS OR DELUSIONS NOTED. PT EXHIBITS PERIODS OF INCREASED CONFUSION, BUT IS ABLE TO REDIRECT WITH VERBALIZATION. HAS NOT EXHIBITED THREATENING OR COMBATIVE BEHAVIORS, IS NOT ACTIVELY EXIT-SEEKING. PARTICIPATES IN GROUP ACTIVITIES AND IS COOPERATIVE WITH ADLS. TAKES MEDICATIONS ORDERED, INITIATES INTERACTION WITH STAFF AND PEERS. P: PLANS FOR PT TO DISCHARGE TO [facility] IN [place] ONCE GUARDIANSHIP HAS BEEN OBTAINED BY [facility].
[2018-12-01 19:37] VITALS: BP 126/67
[2018-12-01] MEDS: RISPERDAL PO SCH (20:38)
[2018-12-01] MEDS: DESYREL PO SCH (20:38)
[2018-12-01 21:35] VITALS: BP 128/70
--- NOTE | 2018-12-01 23:15 | NUR ---
FALL IT PROJECT LEAD HEARD NOISE AND WENT TO CHECK ON PT. PT. WAS SITTING ON THE FLOOR BESIDE THE BED. IT PROJECT LEAD ASKED PT. IF SHE FELL AND SHE SAID ,"YES,I AM OK." NO REDNESS,BRUISING,SWELLING OR SKIN TEARS NOTED. DENIES PAIN. PT. HAD TURNED THE LIGHT IN HER ROOM OFF. WHEN PT. WAS ASKED WHAT HAPPENED TO MAKE HER FALL SHE STATED THAT SHE DID NOT KNOW. VS 98.4 ,97% ,128/70,91 AND 18 PT. GOT UP FROM FLOOR BY HERSELF AND HAS AMBULATED AT TIMES WITHOUT DIFFICULTY. RED NON SKID SOCKS WERE PLACED ON PT.'S FEET. BED IS IN LOW POSITION. CONTINUE WITH Q 15 MIN. MONITORING. Addendum: 12/02/18 at 0355 by Patience Clifford RN RN DR. LEE NOTIFIED AT 2140,Crispin RAMIREZ RN ,DIRECTOR NOTIFIED AT 2145 AND FUELS SALES REPRESENTATIVE ,JEEVAN Toledo RN NOTIFIED AT 2150.
--- NOTE | 2018-12-02 01:44 | NUR ---
PIRP- P- ALTERED THOUGHT PROCESS I- PROVIDE SAFE AND SUPPORTIVE ENVIRONMENT,PROVIDE MEDICATION ORDERED, Q 15 MIN. MONITORING R- PT. ORIENTED TO NAME BUT STATED IT IS 2018 AND IT IS DECEMBER. DENIES DEPRESSION AND ANXIETY. CHEERFUL AFFECT. TOOK MEDICATION ORDERED. PT. ATTENDED GROUP AND PARTICIPATED IN GROUP ACTIVITIES. PT. STATED SHE TOOK HER DOG WALKING AROUND THE NEIGHBORHOOD TODAY. AT TIMES PT. FORGETS WHERE HER ROOM IS AND REQUIRES REDIRECTING. RESTING IN BED WITH EYES CLOSED AT THIS TIME. P- WILL CONTINUE WITH CURRENT [place]. PLAN.
[2018-12-02 08:23] VITALS: BP 134/40
[2018-12-02] MEDS: PEPCID PO SCH ×2 (09:02→21:15)
--- NOTE | 2018-12-02 11:50 | NUR ---
BANKING: SW WAS ABLE TO SIT WITH PT AND CALL BANK AND TO GET ACCESS TO HER ONLINE BANKING AND WITH PT'S PERMISSION ABLE TO SEE PT HAS AROUND $4100 CURRENTLY IN BANK ACCOUNT AND WOULD BE ABLE TO PAY FOR PLACEMENT WHILE THEY WORK ON GETTING PT SOONER CARE. SW WROTE PT'S BANK INFORMATION ON NOTE AND PT PUT IN HER WALLET SO SHE WOULD HAVE HER INFORMATION IF SHE NEEDED IT IN THE FURTURE. SW PRINTED LAST FEW MONTHS OF BANK STATEMENTS SO NH WOULD HAVE IF THEY ACCEPTED SO THEY COULD START ON MEDICAID PROCESS. SW TO CONTINUE TO FOLLOW AND PT STILL PENDING ACCEPTANCE AT THIS TIME.
--- NOTE | 2018-12-02 13:19 | NUR ---
Co-Signature For [place] Assessment I, ISHMAEL Finch am co-signing Music Therapy Activities Assessment with completion of this attached note. Signed: 12/02/18 at 1319 by ISHMAEL Finch OT Addendum: 12/02/18 at 1319 by ISHMAEL Finch OT Amended: Links added.
--- NOTE | 2018-12-02 13:59 | NUR ---
TELEMED PT WAS SEEN BY Keira VARELA, SWETHA, RESTROOMS OR LOUNGES MAID. RECEIVED ORDERS TO D/C SCHEDULED RISPERDAL.
--- NOTE | 2018-12-02 14:00 | PRM.PN ---
Mood: DENIES DEPRESSIVE AND ANXIOUS SYMPTOMS. Sleep: SLEPT 7.5 HOURS Appetite: GOOD Suidical thoughts: DENIES Homicidal thoughts: DENIES Recent stressors: COGNITIVE DECLINE Family support: POOR Aggressive Behavior: NONE Ability to Perform ADL'sc: GOOD Psychotic sympstoms: NONE Manic Symptoms: NONE NOTED Living situation: ALONE, AWAITING PLACEMENT Illicit Drug usec: NONE Alcoholo use: NONE Tobacco use: NONE Family,PT,Surgical,&Current HX: (1) Delusional disorder Anxity Symptoms: DENIES ANXIOUS SYMPTOMS. Anger/Irritablility: NONE NOTED Muscle Strength & Tone: WNL Gait & Station: WN Appearance: Well groomed/hygience, Casual attire, Normal weight, Appears younger Attitude & Behaviour: Cooperative/Pleasant, Good eye contact Mood & Affect: Euthymic/appr/congruent Orientation: Disoriented to place, Disoriented to time Attention/Concentration: Good attention, Good concentration Speech: Reg rate/vol/rhyth/prosod Judgement/Insight: Good judgement, Fair insight Thought Process: Linear/goal directed Language: [place]ib[place]ian Thought content/Abnormal/Psych: None/normal Fund of Knowledge: WNL Associations: WNL/Normal Associations Memory (recent and remote): Recent memory repaired, Remote memory repaired Constitutional: None Neurological: None Psychiatric: None [place] I: DELUSIONAL DISORDER, DEMENTIA [place] II: DEFERRED [place] III: SEE MEDICAL CHART/PMH [place] IV: COGNITIVE DECLINE [place] V: 40 Assessment/Plan Assessment/Plan Assessment/Plan Vital Signs Date Time Temp Pulse Resp B/P (MAP) Pulse Ox O2 Delivery O2 Flow Rate FiO2 12/02/18 08:23 98.2 66 14 134/40 (71) 93 Room Air 98.2 Allergies Coded Allergies Type Severity Reaction Last Updated Verified No Known Allergies 11/20/18 No Intake and Output 12/02/18 07:00 Intake Total 1980 ml Balance 1980 ml Intake Oral 1980 ml # Voids 6 # Bowel Movements 1 THE PATIENT WAS SEEN BY HEATH VARELA VIA TELEMEDICINE EQUIPMENT (SUPPORTED BY [facility]) ALONG WITH THE TREATMENT TEAM. SHE REPORTS THAT SHE IS DOING WELL OVERALL. SHE IS EATING AND SLEEPING WELL. SHE DENIES SI/HI/AV/VH. SHE HAS BEEN PLEASANT AND COOPERATIVE. NURSING HAS NOTED THAT SHE SEEMS TO BE SLOWING DOWN. SHE IS TOLERATING HER MEDICATIONS WELL. SHE HAS NOT REQUIRED ANY PRN MEDICATIONS. SHE DENIES DEPRESSIVE AND ANXIOUS SYMPTOMS. SHE DENIES ANY ACUTE COMPLAINTS. ASSESSMENT: DELUSIONAL DISORDER, DEMENTIA PLAN: 1. CONTINUE BEHAVIORAL HEALTH MANAGEMENT. 2. STOP RISPERDAL. CONTINUE CURRENT MEDICATIONS PRESCRIBED. STAFF AGREEABLE WITH PLAN 3. ALL PATIENT QUESTIONS ANSWERED RELATED TO MEDICATIONS, PLAN OF CARE, AND EXPECTED OUTCOMES. 4. SAFETY PLAN DISCUSSED. HEATH VARELA NP Dec 02, 2018 14:00
--- NOTE | 2018-12-02 17:19 | NUR ---
PIRP P: DEMENTIA I: RE-ORIENT TO SURROUNDINGS, PROVIDE SAFE AND SUPPORTIVE ENVIRONMENT, Q15 MIN MONITORING, REINFORCE UNIT RULES, GIVE CLEAR AND SIMPLE INSTRUCTIONS, REDIRECT WITH VERBALIZATION, ASSESS FOR PSYCHOTIC SYMPTOMS, ALTERNATE REST/ACTIVITY, GIVE MEDICATIONS ORDERED R: PT HAS PLEASANT, COOPERATIVE AFFECT. HAS NOT EXHIBITED THREATENING OR COMBATIVE BEHAVIORS, HAS NOT BEEN EXIT-SEEKING. DENIES FEELINGS OF DEPRESSION, ANXIETY, SI/HI, NO HALLUCINATIONS OR DELUSIONS NOTED. PARTICIPATES IN GROUP ACTIVITIES, TAKES MEDICATIONS ORDERED, INITIATES INTERACTION AND RESPONDS APPROPRIATELY WHEN APPROACHED. P: SCHEDULED RISPERDAL DISCONTINUED.
[2018-12-02 19:00] VITALS: BP 146/69
[2018-12-02] MEDS: DESYREL PO SCH (21:15)
--- NOTE | 2018-12-03 00:35 | NUR ---
PIRP- P- ALTERED THOUGHT PROCESS I- PROVIDE SAFE AND SUPPORTIVE ENVIRONMENT,PROVIDE MEDICATION ORDERED AND Q 15 MIN. MONITORING. R- PT. EXHIBITED CHEERFUL AFFECT. DENIES DEPRESSION AND ANXIETY. NO HALLUCINATIONS OR DELUSIONS NOTED. ATTENDED GROUP ,ATE SNACKS AND PARTICIPATED IN EXERCISES. TOOK MEDICATION ORDERED. RESTING IN BED WITH EYES CLOSED AT THIS TIME. P- WILL CONTINUE WITH CURRENT TX. PLAN.
[2018-12-03 07:16] VITALS: BP 112/62
--- NOTE | 2018-12-03 09:15 | PRM.PN ---
Mood: STABLE. DENIES DEPRESSIVE SYMPTOMS. Sleep: SLEPT 5.75 HOURS Appetite: GOOD Suidical thoughts: DENIES Homicidal thoughts: DENIES Recent stressors: COGNITIVE DECLINE Family support: POOR Aggressive Behavior: NONE NOTED Ability to Perform ADL'sc: GOOD Psychotic sympstoms: DENIES Manic Symptoms: NONE NOTED Living situation: GOOD Illicit Drug usec: NONE Alcoholo use: NONE Tobacco use: NONE Family,PT,Surgical,&Current HX: (1) Delusional disorder Anxity Symptoms: DENIES Anger/Irritablility: NONE NOTED. Muscle Strength & Tone: WNL Gait & Station: WNL Appearance: Appears older, Casual attire, Normal weight, Appears younger Attitude & Behaviour: Cooperative/Pleasant Mood & Affect: Euthymic/appr/congruent Orientation: Fully oriented per interv Attention/Concentration: Good attention, Good concentration Speech: Reg rate/vol/rhyth/prosod Judgement/Insight: Good judgement, Good insight Thought Process: Linear/goal directed Language: Wolof Thought content/Abnormal/Psych: None/normal Fund of Knowledge: WNL Associations: WNL/Normal Associations Memory (recent and remote): Recent memory repaired, Remote memory repaired Constitutional: None Neurological: None Psychiatric: None [place] I: DELUSIONAL DISORDER [place] II: DEFERRED [place] III: SEE MEDICAL CHART/PMH [place] IV: COGNITIVE DECLINE [place] V: 45 Assessment/Plan Assessment/Plan Plan Problems Medical Problems: (1) Delusional disorder Status: Acute ICD Codes: F22 - Delusional disorders SNOMED: [id number] Problem Recorded: Nov 20, 2018 14:14 Last Edited By: Jatin Ernandez MD - Gp on Nov 23, 2018 09:50 Vital Signs Date Time Temp Pulse Resp B/P (MAP) Pulse Ox O2 Delivery O2 Flow Rate FiO2 12/03/18 07:16 98.5 68 18 112/62 (79) 96 Room Air 98.5 Allergies Coded Allergies Type Severity Reaction Last Updated Verified No Known Allergies 11/20/18 No Intake and Output 12/03/18 06:59 Intake Total 1937 ml Balance 1937 ml Intake Oral 1937 ml # Voids 1 THE PATIENT WAS SEEN BY HEATH VARELA VIA TELEMEDICINE EQUIPMENT (SUPPORTED BY [facility]) ALONG WITH THE TREATMENT TEAM. SHE HAS BEEN PLEASANT AND COOPERATIVE. SHE CONTINUES TO BE CONFUSED. SHE IS EATING AND SLEEPING WELL. DAYTIME ENERGY IS GOOD. APPETITE IS STABLE. SHE DENIES ANY PROBLEMS WITH HER MEDICATIONS. SHE DOES NOT APPEAR SEDATED. SHE DENIES DEPRESSIVE AND ANXIOUS SYMPTOMS. SHE DENIES SI/HI/AV/VH. YESTERDAY RISPERDAL WAS DISCONTINUED AND SHE IS DOING WELL WITHOUT. SHE HAS REQUIRES ANY PRN MEDICATIONS. ASSESSMENT: DELUSIONAL DISORDER PLAN: 1. CONTINUE BEHAVIORAL HEALTH MANAGEMENT. [place] [facility] [place] 2. CONTINUE CURRENT MEDICATIONS PRESCRIBED. STAFF AGREEABLE WITH PLAN 3. ALL PATIENT QUESTIONS ANSWERED RELATED TO MEDICATIONS, PLAN OF CARE, AND EXPECTED OUTCOMES. 4. SAFETY PLAN DISCUSSED. HEATH VARELA NP Dec 03, 2018 09:15
[2018-12-03] MEDS: PEPCID PO SCH ×2 (09:53→20:33)
--- NOTE | 2018-12-03 17:48 | NUR ---
PIRP P: DEMENTIA I: MONITOR FOR CHANGES IN USUAL BEHAVIOR, Q15 MIN MONITORING, GIVE CLEAR AND SIMPLE INSTRUCTIONS, ASSESS FOR PSYCHOTIC SYMPTOMS, ASSIST WITH DIFFERENTIATING BETWEEN INTERNAL AND EXTERNAL REALITY, REDIRECT WITH VERBALIZATION, PROVIDE TASK-ORIENTED ACTIVITIES, RE-ORIENT TO SURROUNDINGS NEEDED R: PT MOOD HAS BEEN BRIGHT AND CHEERFUL. RATED DEPRESSION 0/10, ANXIETY 0/10, AND DENIES SUICIDAL IDEATION OR HALLUCINATIONS. PT PARTICIPATED IN GROUP ACTIVITIES AND MADE JOKES WITH STAFF. PT SITS AND TELLS STORIES ABOUT HER PAST, BUT SHORT TERM MEMORY CONTINUES TO BE IMPAIRED. PT HAS TAKEN MEDICATIONS WITHOUT DIFFICULTY. NO NEW ORDERS RECEIVED TODAY. P:CONTINUE WITH COGNITIVE SKILLS THERAPY AND CURRENT PLAN OF CARE.
[2018-12-03 19:23] VITALS: BP 128/66
[2018-12-03] MEDS: DESYREL PO SCH (20:33)
--- NOTE | 2018-12-04 01:56 | NUR ---
PIRP P- ALTERED THOUGHT PROCESS I- PROVIDE MEDICATION ORDERED,PROVIDE SAFE AND SUPPORTIVE ENVIRONMENT AND Q 15 MIN. MONITORING R- PT. WAS ORIENTED TO NAME AND YEAR. DENIES DEPRESSION AND ANXIETY. ATTENDED GROUP AND ATE A SNACK. TOOK MEDICATION ORDERED. PT. EXHIBITED STML. EXHIBITED HALLUCINATION. PT. TOLD NURSE THAT THERE IS A LIGHT SHINING UNDER NURSE'S FEET. AT HS PT. STATED SHE IS IN [place] AND THAT SHE NEEDS TO GO HOME AND TAKE CARE OF HER DOG. NURSES TRIED TO REORIENT HER BUT WAS UNSUCCESSFUL. ASSISTED PT. WITH GETTING READY FOR BED. RESTING IN BED WITH EYES CLOSED AT THIS TIME. P- WILL CONTINUE WITH CURRENT TX. PLAN.
[2018-12-04 08:50] VITALS: BP 109/51
[2018-12-04] MEDS: PEPCID PO SCH ×2 (09:00→20:39)
--- NOTE | 2018-12-04 17:34 | NUR ---
PIRP P: DEMENTIA I: MONITOR FOR CHANGES IN USUAL BEHAVIOR, Q15 MIN MONITORING, GIVE CLEAR AND SIMPLE INSTRUCTIONS, ASSESS FOR PSYCHOTIC SYMPTOMS, ASSIST WITH DIFFERENTIATING BETWEEN INTERNAL AND EXTERNAL REALITY, REDIRECT WITH VERBALIZATION, PROVIDE TASK-ORIENTED ACTIVITIES, RE-ORIENT TO SURROUNDINGS NEEDED R: PT MOOD IS BRIGHT TODAY. RATED D-0/10, A-0/10, SI-0/10, AND DENIES HALLUCINATIONS. PT HAS BEEN ORIENTED TO NAME AND HAS NEEDED REPEATED REORIENTATION TO PLACE. PT RECEIVED A SHOWER WITH MINIMAL STAFF ASSISTANCE AND HAS REMAINED IN THE DAY ROOM SOCIALIZING AND REMINISCING ABOUT THE PAST. NO NEW ORDERS HAVE BEEN RECEIVED TODAY. PT PARTICIPATED IN GROUP THERAPY WITHOUT DIFFICULTY. P:CONTINUE WITH COGNITIVE SKILLS THERAPY AND CURRENT PLAN OF CARE.
--- NOTE | 2018-12-04 18:12 | PRM.PN ---
Mood: STABLE, DENIES DEPRESSIVE SYMPTOMS. Sleep: SLEPT 5.25 HOURS Appetite: GOOD Suidical thoughts: DENIES Homicidal thoughts: DENIES Recent stressors: COGNITVE DECLINE Family support: POOR Aggressive Behavior: NONE NOTED Ability to Perform ADL'sc: FAIR Psychotic sympstoms: DENIES Manic Symptoms: NONE NOTED Living situation: ALONE, [place] PL[place] [facility] [place]icit Drug usec: NONE Alcoholo use: NONE Tobacco use: NONE Family,PT,Surgical,&Current HX: (1) Delusional disorder Anxity Symptoms: NONE NOTED, DENIES Anger/Irritablility: NONE NOTED Muscle Strength & Tone: WNL Gait & Station: WNL Appearance: Well groomed/hygience, Casual attire, Normal weight, Appears younger Attitude & Behaviour: Cooperative/Pleasant, Good eye contact Mood & Affect: Euthymic/appr/congruent Orientation: Fully oriented per interv Attention/Concentration: Good attention, Good concentration Speech: Reg rate/vol/rhyth/prosod Judgement/Insight: Fair judgement, Poor insight Thought Process: Linear/goal directed Language: Nepali Thought content/Abnormal/Psych: None/normal Fund of Knowledge: Other (LIMITED) Associations: WNL/Normal Associations Memory (recent and remote): Recent memory repaired, Remote memory repaired Constitutional: None Neurological: None Psychiatric: None [place] I: DELUISONAL DISORDER. DEMENTIA [place] II: DEFERRED [place] III: SEE MEDICAL CHART/PMH [place] IV: COGNITIVE DECLINE [place] V: 40 Assessment/Plan Assessment/Plan Assessment/Plan P Plan Vital Signs Date Time Temp Pulse Resp B/P (MAP) Pulse Ox O2 Delivery O2 Flow Rate FiO2 12/04/18 08:50 98.2 68 16 109/51 (70) 94 Room Air 98.2 Allergies Coded Allergies Type Severity Reaction Last Updated Verified No Known Allergies 11/20/18 No Intake and Output 12/04/18 07:00 Intake Total 1542 ml Balance 1542 ml Intake Oral 1542 ml # Voids 3 Problems Medical Problems: (1) Delusional disorder Status: Acute ICD Codes: F22 - Delusional disorders SNOMED: [id number] Problem Recorded: Nov 20, 2018 14:14 Last Edited By: Jatin Ernandez MD - Gp on Nov 23, 2018 09:50 THE PATIENT WAS SEEN BY HEATH VARELA VIA TELEMEDICINE EQUIPMENT (SUPPORTED BY [facility]) ALONG WITH THE TREATMENT TEAM. SHE IS DOING WELL TODAY, SHE REPORTS THAT HER MOOD IS STABLE. SHE DENIES DEPRESSIVE AND ANXIOUS SYMPTOMS. SHE IS EATING AND SLEEPING WELL. SHE REPORTS HAVING GOOD ENERGY. SHE DENIES SI/ HI/AV/VH. SHE HAS BEEN COOPERATIVE AND PLEASANT. SHE CONTINUES TO BE CONFUSED BUT EASILY REDIRECTED. SHE HAS NOT REQUIRED ANY PRN MEDICATIONS AND NO BEHAVIORS HAVE BEEN NOTED. ASSESSMENT: DELUSIONAL DISORDER, DEMENTIA. PLAN: 1. CONTINUE BEHAVIORAL HEALTH MANAGEMENT. 2. CONTINUE CURRENT MEDICATIONS PRESCRIBED. STAFF AGREEABLE WITH PLAN 3. ALL PATIENT QUESTIONS ANSWERED RELATED TO MEDICATIONS, PLAN OF CARE, AND EXPECTED OUTCOMES. 4. SAFETY PLAN DISCUSSED. HEATH VARELA NP Dec 04, 2018 18:12
[2018-12-04 19:00] VITALS: BP 120/53
[2018-12-04] MEDS: DESYREL PO SCH (20:39)
--- NOTE | 2018-12-05 04:54 | NUR ---
-PIRP: P: Altered thought process: I: Provide medications as ordered by physician. Encourage attendance and participation of all groups. Allow patient to voice feelings and concerns. Assist patient in differentiating between internal and external reality. R: The patient presents with a bright and pleasant affect. She has been observed socializing appropriately with staff and peer in dayroom. The patient denies depression, suicidal or homicidal ideation, and hallucinations. The patient appears to be at baseline functioning. She becomes confused at night and reports that she needs to go home to take care of her dog, but continues to be easily re-oriented. The patient continues to have no behavioral issues. She continues to be compliant with evening medications. As of this time, she has slept 5.25 hours. P: Continue current plan of care. Will continue to monitor patient and maintain safety
[2018-12-05] MEDS: PEPCID PO SCH ×2 (08:58→20:13)
[2018-12-05 09:45] VITALS: BP_DIAS 66
--- NOTE | 2018-12-05 14:40 | PRM.PN ---
Mood: STABLE. DENIES DEPRESSIVE SYMPTOMS. Sleep: SLEPT 8 HOURS Appetite: GOOD Suidical thoughts: DENIES Homicidal thoughts: DENIES Recent stressors: COGNITIVE DECLINE Family support: NONE Aggressive Behavior: NONE NOTED. Ability to Perform ADL'sc: GOOD Psychotic sympstoms: NONE NOTED Manic Symptoms: NONE NOTED Living situation: ALONE, [place] PLAC[place] [facility] [place] Illicit Drug usec: NONE Alcoholo use: NONE Tobacco use: NONE Family,PT,Surgical,&Current HX: (1) Delusional disorder (2) Dementia Anxity Symptoms: DENIES Anger/Irritablility: NONE NOTED. Muscle Strength & Tone: WNL Gait & Station: WNL Appearance: Casual attire, Appears younger Attitude & Behaviour: Cooperative/Pleasant Mood & Affect: Euthymic/appr/congruent Orientation: Disoriented to place, Disoriented to time Attention/Concentration: Good attention, Good concentration Speech: Reg rate/vol/rhyth/prosod Judgement/Insight: Fair judgement, Fair insight Thought Process: Linear/goal directed Language: Indian Thought content/Abnormal/Psych: None/normal Fund of Knowledge: Other (LIMITED) Associations: WNL/Normal Associations Memory (recent and remote): Recent memory repaired, Remote memory repaired Constitutional: None Neurological: None Psychiatric: None [place] I: DELUSIONAL DISORDER, DEMENTIA [place] II: DEFERRED [place] III: SEE MEDICAL CHART/PMH [place] IV: COGNITIVE DECLINE [place] V: 50 Assessment/Plan Assessment/Plan Assessment/Plan Vital Signs Date Time Temp Pulse Resp B/P (MAP) Pulse Ox O2 Delivery O2 Flow Rate FiO2 12/05/18 09:45 98.0 67 16 /66 97 Room Air 132.00 98.0 Allergies Coded Allergies Type Severity Reaction Last Updated Verified No Known Allergies 11/20/18 No Intake and Output 12/05/18 07:00 Intake Total 2235 ml Output Total 1 ml Balance 2234 ml Intake Oral 2235 ml Output Stool Total 1 ml # Voids 6 THE PATIENT WAS SEEN BY HEATH VARELA VIA TELEMEDICINE EQUIPMENT (SUPPORTED BY [facility]) ALONG WITH THE TREATMENT TEAM. SHE CONTINUES TO HAVE SOME CONFUSION. SHE REPORTS BEING STABLE, SHE DENIES SI/HI/AV/VH. SHE DENIES DEPRESSIVE AND ANXIOUS SYMPTOMS. SHE IS IN GOOD SPIRITS. APPETITE IS GOOD. SLEEP IS GOOD. SHE HAS NOT HAD BEHAVIORS AND HAS NOT REQUIRED ANY PRN MEDICATIONS. SHE IS PLEASANT AND COOPERATIVE. ASSESSMENT: DELUSIONAL DISORDER, DEMENTIA PLAN: 1. CONTINUE BEHAVIORAL HEALTH MANAGEMENT. AWAITING PLACEMENT BY [facility] [place]. 2. CONTINUE CURRENT MEDICATIONS PRESCRIBED. STAFF AGREEABLE WITH PLAN 3. ALL PATIENT QUESTIONS ANSWERED RELATED TO MEDICATIONS, PLAN OF CARE, AND EXPECTED OUTCOMES. 4. SAFETY PLAN DISCUSSED. HEATH VARELA NP Dec 05, 2018 14:40
--- NOTE | 2018-12-05 14:53 | NUR ---
JAIL FOLLOW UP: HERON FOLLOWED UP WITH [facility] PLACEMENT[facility]. ELAINA MARINS, RODRÍGUEZ GONZALEZ, AND MOISES LOVETT CURRENTLY HAD NO BED AVAILABILITY. TRENT JACKSON STATED "AFTER REVIEWING HER CLINICAL WE HAVE DECIDED WE ARE UNABLE TO HELP HER AT THIS TIME. WE ARE NOT ABLE TO TAKE PT'S MEDICAID PENDING AND SHE WOULD BE SHORT FOR THE REST OF THE MONTH. FOR THE REST OF THE MONTH IT WOULD BE AT LEAST $5400. PLUS THERE WOULD BE NO ONE TO HELP HER WITH THE MEDICAID PROCESS IF SHE EVEN QUALIFIED SINCE SHE HAS ASSETS". HERON VISITED WITH FREDY ARROYO WITH [facility] D[facility] WHO STATED SHE HAS SOME BED AVAILABILITY BUT SHE COORDINATES WITH MULTIPLE DIFFERENT FACILITIES AND WOULD LOOK OVER HER CLINICAL AND SEE IF ONE OF HER FACILITIES MAY BE ABLE TO MEET PT'S NEEDS. SW TO CONTINUE TO FOLLOW AND ASSIST WITH DISCHARGE PLANNING NEEDS.
--- NOTE | 2018-12-05 16:06 | NUR ---
PIRP: P: ALTERED THOUGHT PROCESS I: Provide medications as ordered by physicians. Encourage attendance and participation of all groups. Allow patient to voice feelings and concerns. Provide safe environment. R: Patient has taken all medications and has participated in groups. She has eaten and slept well and has been cooperative and pleasant. She has memory issues and has been a poor historian. APS in [place] is working in regards to her case presently. P: Continue current plan of care.
[2018-12-05 19:04] VITALS: BP 131/66
[2018-12-05] MEDS: DESYREL PO SCH (20:13)
--- NOTE | 2018-12-06 05:58 | NUR ---
-PIRP: P: Altered thought process: I: Provide medications as ordered by physician. Encourage attendance and participation of all groups. Allow patient to voice feelings and concerns. Assist patient in differentiating between internal and external reality. R: The patient presents with a bright and pleasant affect. She interacts appropriately with staff. She continues to deny depression, suicidal or homicidal ideation, and hallucinations. She becomes disoriented at times, but continues to be easily re-oriented. The patient continues to have no behavioral issues. She continues to be compliant with evening medications. P: Continue current plan of care. Will continue to monitor patient and maintain safety
[2018-12-06] MEDS: PEPCID PO SCH ×2 (09:43→20:13)
[2018-12-06 09:44] VITALS: BP 115/50
--- NOTE | 2018-12-06 09:46 | PRM.PN ---
Mood: [place], DENIES DEPRESSIVE SYMPTOMS. Sleep: SLEPT 8 HOURS Appetite: GOOD Suidical thoughts: DENIES Homicidal thoughts: DENIES Recent stressors: COGNITIVE DECLINE Family support: POOR Aggressive Behavior: NONE NOTED Ability to Perform ADL'sc: FAIR Psychotic sympstoms: DENIES Manic Symptoms: NONE NOTED Living situation: ALONE SEEKING PLACEMENT WITH [facility] [place] Illicit Drug usec: NONE Alcoholo use: NONE Tobacco use: NONE Family,PT,Surgical,&Current HX: (1) Delusional disorder (2) Dementia Anxity Symptoms: DENIES Anger/Irritablility: NONE NOTED Muscle Strength & Tone: WNL Gait & Station: Normal stance/post/gait Appearance: Well groomed/hygience, Casual attire, Normal weight, Appears younger Attitude & Behaviour: Cooperative/Pleasant, Good eye contact Mood & Affect: Euthymic/appr/congruent Orientation: Disoriented to place, Disoriented to time Attention/Concentration: Fair attention, Fair concentration Speech: Reg rate/vol/rhyth/prosod Judgement/Insight: Fair judgement Thought Process: Linear/goal directed Language: Estonian Thought content/Abnormal/Psych: None/normal Fund of Knowledge: WNL Associations: WNL/Normal Associations Memory (recent and remote): Recent memory repaired, Remote memory repaired Constitutional: None Neurological: None Psychiatric: None [place] I: DELUSIONAL DISORDER, DEMENTIA [place] II: DEFERRED [place] III: SEE MEDICAL CHART/PMH [place] IV: COGNITIVE DECLINE [place] V: 40 Assessment/Plan Assessment/Plan Plan Vital Signs Date Time Temp Pulse Resp B/P (MAP) Pulse Ox O2 Delivery O2 Flow Rate FiO2 12/05/18 19:04 98.6 90 18 131/66 (87) 96 Room Air 98.6 12/05/18 09:45 132.00 Allergies Coded Allergies Type Severity Reaction Last Updated Verified No Known Allergies 11/20/18 No Intake and Output 12/06/18 07:00 Intake Total 1562 ml Balance 1562 ml Intake Oral 1562 ml # Voids 3 THE PATIENT WAS SEEN BY HEATH VARELA VIA TELEMEDICINE EQUIPMENT (SUPPORTED BY [facility]) ALONG WITH THE TREATMENT TEAM. SHE SLEPT WELL LAST NIGHT. SHE DENIES DEPRESSIVE AND ANXIOUS SYMPTOMS. SHE IS EATING WELL. SHE IS TOLERATING HER MEDICATIONS WELL. SHE IS CONFUSED. SHE IS COOPERATIVE AND PLEASANT. SHE DOES NOT APPEAR SEDATED. APPETITE IS STABLE. SHE HAS NOT REQUIRED ANY PRN MEDICATIONS AND SHE HAS NOT HAD ANY BEHAVIORS. SHE DENIES SI/HI/AV/VH. ASSESSMENT: DELUSIONAL DISORDER, DEMENTIA PLAN: 1. CONTINUE BEHAVIORAL HEALTH MANAGEMENT. AWAITING PLACEMENT WITH THE [facility] [place]. 2. CONTINUE CURRENT MEDICATIONS PRESCRIBED. STAFF AGREEABLE WITH PLAN 3. ALL PATIENT QUESTIONS ANSWERED RELATED TO MEDICATIONS, PLAN OF CARE, AND EXPECTED OUTCOMES. 4. SAFETY PLAN DISCUSSED. HEATH VARELA NP Dec 06, 2018 09:46
--- NOTE | 2018-12-06 10:12 | NUR ---
PLACEMENT FOLLOW UP: FREDY ARROYO CALLED AND STATED "I HAVE A REALTOR FRIEND THAT LOOKED UP PT'S HOME VALUE AND SHE ESTIMATED THE HOUSE AROUND $139,000-170,000, SO THEY ARE THINKING AROUND $150,000, BUT THERE WERE SOME CONCERNS SINCE IT LOOKED LIKE SHE MAY HAVE TAKEN OUT MORTGAGES IN 2004, 2005, AND 2010 ON THE HOUSE. SO, SHE MAY STILL BE PAYING ON THOSE. I WAS A LITTLE CONCERNED BECAUSE WHEN I SPOKE WITH LEONIDES SHE DID NOT HAVE AN IDEAL ABOUT HER FINANCES. SHE IS TRYING TO LIMIT ME ON WHAT PLACES I COULD TRY. SHE WANTS ME TO STAY WITH A CERTAIN RADIUS AND FOR HER TO COME IN MEDICAID PENDING BECAUSE THEY DON'T WANT TO HAVE TO MOVE HER LATER ON. IT IS HARD TO TAKE A PT MEDICAID PENDING WHEN YOU DON'T KNOW THEIR FINANCES AND THEY HAVE ASSETS AND LIMITED FAMILY SUPPORT. I WANT TO HELP AND WOULD LIKE TO GET HER OUT OF THERE THIS WEEK IT IS JUST HARD WHEN SHE IS LIMITING ME". SW LET HER KNOW THAT WE JUST WANT A PLACE THAT IS WILLING TO TAKE PT AND HELP HER WORK THROUGH HER FINANCES AND WILL TAKE CARE OF HER. SW LET HER KNOW TO KEEP LOOKING AND SEE IF SHE CAN FIND A PLACE FOR PT TO GO. PT STILL PENDING ACCEPTANCE AT THIS TIME.
--- NOTE | 2018-12-06 10:20 | NUR ---
TELEMED PT WAS SEEN BY Keira VARELA, SWETHA, MARINE ARCHITECT. NO NEW ORDERS RECEIVED @ THIS TIME.
--- NOTE | 2018-12-06 16:08 | NUR ---
PIRP P: DEMENTIA I: Q15 MIN MONITORING, MONITOR FOR CHANGES IN USUAL BEHAVIOR, RE-ORIENT TO SURROUNDINGS NEEDED, REDIRECT WITH VERBALIZATION, GIVE CLEAR AND SIMPLE INSTRUCTIONS, ASSIST WITH REALITY ORIENTATION, PROVIDE 1:1 TO ENCOURAGE EXPRESSION OF FEELINGS, PROVIDE TASK-ORIENTED ACTIVITIES R: PT HAS BRIGHT, CHEERFUL AFFECT. HAS NOT EXHIBITED THREATENING OR COMBATIVE BEHAVIORS. HAS NOT BEEN EXIT-SEEKING, NO HALLUCINATIONS OR DELUSIONS NOTED. DENIES FEELINGS OF DEPRESSION, ANXIETY, SI, HI. PARTICIPATES IN GROUP ACTIVITIES, TAKES MEDICATIONS ORDERED. P: PLANS REMAIN FOR PT TO DISCHARGE SOON [facility] [place] HAS CONFIRMED PLACEMENT.
[2018-12-06 19:28] VITALS: BP 113/60
[2018-12-06] MEDS: DESYREL PO SCH (20:13)
[2018-12-07 07:55] VITALS: BP 106/48
--- NOTE | 2018-12-07 08:36 | PRM.PN ---
Mood: "ALRIGHT" Sleep: SLEEPING WELL AT NIGHT Appetite: NORMAL APPETITE Suidical thoughts: NONE REPORTED Homicidal thoughts: NONE REPORTED Recent stressors: STRESS OF MENTAL ILLNESS Family support: LIMITED Aggressive Behavior: NONE REPORTED, COOPERATIVE WITH STAFF Ability to Perform ADL'sc: ABLE TO DO HER ADLS Psychotic sympstoms: NONE REPORTED, HAD DELUSIONS RELATED TO HER DEMENTIA Manic Symptoms: NONE REPORTED Living situation: WAS LIVING IN [place], [place] Illicit Drug usec: NONE REPORTED Alcoholo use: NONE REPORTED Tobacco use: NONE REPORTED Anxity Symptoms: MILD ANXIETY LEVEL Anger/Irritablility: LIMITED ANGER AND IRRITABILITY Muscle Strength & Tone: WNL Gait & Station: WN Appearance: Well groomed/hygience, Casual attire, Normal weight, Appears age stated Attitude & Behaviour: Cooperative/Pleasant, Good eye contact Mood & Affect: Euthymic/appr/congruent Orientation: Disoriented to time, Disoriented to situation Attention/Concentration: Poor attention, Poor concentration Speech: Reg rate/vol/rhyth/prosod Judgement/Insight: Poor judgement, Poor insight Thought Process: Linear/goal directed Language: Colombian Thought content/Abnormal/Psych: None/normal Fund of Knowledge: WN Associations: WNL/Normal Associations Memory (recent and remote): Recent memory repaired, Remote memory repaired Constitutional: None Neurological: None Psychiatric: None [place] I: DELUSIONAL DISORDER, ANXIETY, DEMENTIA [place] II: DEFERRED [place] III: REFER TO PMH/MEDICAL CHART [place] IV: STRESS OF MENTAL ILLNESS [place] V: GAF=25 Assessment/Plan Assessment/Plan Assessment/Plan Vital Signs Date Time Temp Pulse Resp B/P (MAP) Pulse Ox O2 Delivery O2 Flow Rate FiO2 12/07/18 07:55 98.4 60 16 106/48 (67) 94 Room Air 98.4 12/05/18 09:45 132.00 Allergies Coded Allergies No Known Allergies (Unverified11/20/18) I & O 11/20/18 14:46 Thru 12/06/18 20:55 Intake Total 19596 ml Output Total 1 ml Balance 35096 ml Vital Signs Date Time Temp Pulse Resp B/P (MAP) Pulse Ox O2 Delivery O2 Flow Rate FiO2 12/05/18 19:04 98.6 90 18 131/66 (87) 96 Room Air 98.6 12/05/18 09:45 132.00 Allergies Coded Allergies Type Severity Reaction Last Updated Verified No Known Allergies 11/20/18 No Intake and Output 12/06/18 07:00 Intake Total 1562 ml Balance 1562 ml Intake Oral 1562 ml # Voids 3 THE PATIENT WAS SEEN BY DEMETRIA SORENSEN MD VIA TELEMEDICINE EQUIPMENT (SUPPORTED BY [facility]) ALONG WITH THE TREATMENT TEAM. THE PATIENT REPORTS HER MOOD IS "ALRIGHT." THE PATIENT DENIES FEELING DEPRESSED. SHE HAS BEEN COOPERATIVE WITH STAFF. THE PATIENT SLEPT 5.75 HOURS LAST NIGHT. SHE IS EATING WELL PER STAFF. SHE IS TOLERATING HER MEDICATIONS WELL PER STAFF. SHE CONTINUES TO STRUGGLE WITH CONFUSION. SHE IS COOPERATIVE AND PLEASANT WITH STAFF. SHE DOES NOT APPEAR OVER-SEDATED ON HER MEDICATIONS. SHE HAS NOT REQUIRED ANY PRN MEDICATIONS AND SHE HAS NOT HAD ANY BEHAVIORS. SHE DENIES SI/HI/AV/VH. THE PATIENT KNEW WHERE SHE WAS TODAY. THE PATIENT DID NOT KNOW THE DATE. THE PATIENT IS DISORIENTED TO THE SITUATION. SHE IS GOING TO [facility] IN [place]. ASSESSMENT: DELUSIONAL DISORDER, DEMENTIA,GENERALIZED ANXIETY DISORDER PLAN: 1. CONTINUE BEHAVIORAL HEALTH MANAGEMENT. AWAITING PLACEMENT WITH THE [facility]. PLAN TO DISCHARGE ON WEDNESDAY OR WEDNESDAY DEPENDING ON TRANSPORTATION. 2. CONTINUE CURRENT MEDICATIONS PRESCRIBED. STAFF AGREEABLE WITH PLAN 3. ALL PATIENT QUESTIONS ANSWERED RELATED TO MEDICATIONS, PLAN OF CARE, AND EXPECTED OUTCOMES. 4. SAFETY PLAN DISCUSSED. 5. 16 MINUTES SPENT IN SUPPORTIVE THERAPY AND INSIGHT ORIENTED THERAPY. Problems: (1) Delusional disorder Status: Resolved ICD Code: F22 - Delusional disorders SNOMED: 82587062 (2) Dementia Status: Chronic ICD Code: F03.90 - Unspecified dementia without behavioral disturbance SNOMED: [id number] Plan Vital Signs Date Time Temp Pulse Resp B/P (MAP) Pulse Ox O2 Delivery O2 Flow Rate FiO2 12/05/18 19:04 98.6 90 18 131/66 (87) 96 Room Air 98.6 12/05/18 09:45 132.00 Allergies Coded Allergies Type Severity Reaction Last Updated Verified No Known Allergies 11/20/18 No Intake and Output 12/06/18 07:00 Intake Total 1562 ml Balance 1562 ml Intake Oral 1562 ml # Voids 3 THE PATIENT WAS SEEN BY HEATH VARELA VIA TELEMEDICINE EQUIPMENT (SUPPORTED BY [facility]) ALONG WITH THE TREATMENT TEAM. SHE SLEPT WELL LAST NIGHT. SHE DENIES DEPRESSIVE AND ANXIOUS SYMPTOMS. SHE IS EATING WELL. SHE IS TOLERATING HER MEDICATIONS WELL. SHE IS CONFUSED. SHE IS COOPERATIVE AND PLEASANT. SHE DOES NOT APPEAR SEDATED. APPETITE IS STABLE. SHE HAS NOT REQUIRED ANY PRN MEDICATIONS AND SHE HAS NOT HAD ANY BEHAVIORS. SHE DENIES SI/HI/AV/VH. ASSESSMENT: DELUSIONAL DISORDER, DEMENTIA PLAN: 1. CONTINUE BEHAVIORAL HEALTH MANAGEMENT. AWAITING PLACEMENT WITH THE [facility]. 2. CONTINUE CURRENT MEDICATIONS PRESCRIBED. STAFF AGREEABLE WITH PLAN 3. ALL PATIENT QUESTIONS ANSWERED RELATED TO MEDICATIONS, PLAN OF CARE, AND EXPECTED OUTCOMES. 4. SAFETY PLAN DISCUSSED. DEMETRIA SORENSEN IV, MD Dec 07, 2018 08:36
--- NOTE | 2018-12-07 08:40 | NUR ---
[place] TEAM PT WAS SEEN BY DR. SORENSEN VIA TELEMEDICINE. NO NEW ORDERS RECEIVED @ THIS TIME.
[2018-12-07] MEDS ORDERED: TRAZ-124 PO (08:42)
[2018-12-07] MEDS ORDERED: FAMO20TA5 PO (08:42)
[2018-12-07] MEDS: PEPCID PO SCH ×2 (09:01→20:10)
--- NOTE | 2018-12-07 18:19 | NUR ---
PIRP P: DEMENTIA I: MONITOR FOR CHANGES IN USUAL BEHAVIOR, PROVIDE SAFE AND SUPPORTIVE ENVIRONMENT, RE-ORIENT TO SURROUNDINGS NEEDED, ASSIST WITH DIFFERENTIATING BETWEEN INTERNAL AND EXTERNAL REALITY, Q15 MIN MONITORING, PROVIDE TASK-ORIENTED ACTIVITIES, GIVE CLEAR AND SIMPLE INSTRUCTIONS, REDIRECT WITH VERBALIZATION R: PT HAS CHEERFUL AFFECT THROUGHOUT SHIFT, PARTICIPATES IN GROUP ACTIVITIES WITH MINIMAL PROMPTING NEEDED. HAS NOT BEEN EXIT-SEEKING, DOES NOT EXHIBIT THREATENING OR COMBATIVE BEHAVIORS. ALERT AND ORIENTED TO SELF, PLACE, AND TOWN. ABLE TO ANSWER QUESTIONS APPROPRIATELY. DENIES FEELINGS OF DEPRESSION, ANXIETY, SUICIDAL IDEATION, HOMICIDAL IDEATIONS, AND HALLUCINATIONS; NO DELUSIONS NOTED. TAKES MEDS ORDERED, REQUIRES PROMPTING WITH ADLS. P: PLANS FOR PT TO DISCHARGE TOMORROW, 12/08/18 @ APPROX 1300 TO ASSISTED LIV[facility] FAC[facility] IN [place], [place].
[2018-12-07 19:00] VITALS: BP 124/70
[2018-12-07] MEDS: DESYREL PO SCH (20:10)
--- NOTE | 2018-12-08 06:21 | NUR ---
PIRP- P- ALTERED THOUGHT PROCESS I- PROVIDE SAFE AND SUPPORTIVE ENVIRONMENT,PROVIDE MEDICATION ORDERED AND Q15 MIN. MONITORING R- PT. RATED DEPRESSION 2 AND DENIED ANXIETY. NO INAPPROPRIATE BEHAVIORS NOTED THIS SHIFT. STML NOTED. ATTENDED GROUP AND PARTICIPATED IN ACTIVITIES. CHEERFUL AFFECT. TOOK MEDICATION ORDERED. NO HALLUCINATIONS NOTED. IN BED RESTING WITH EYES CLOSED AT THIS TIME. P- WILL CONTINUE WITH CURRENT TX. PLAN.
[2018-12-08 08:30] VITALS: BP 112/49
[2018-12-08] MEDS: PEPCID PO SCH (09:04)
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
--- NOTE | 2018-12-08 11:58 | NUR ---
REPORT REPORT GIVEN TO JAY PALMER @ [facility] IN [place], [place]. CONTACT#: [phone].
[2018-12-08 13:05] VITALS: BP 112/49
--- NOTE | 2018-12-08 13:05 | NUR ---
OFF UNIT PT AMBULATED OFF UNIT ALONGSIDE Clarice GLEASON, [facility] [employer] [employer]. NO DISTRESS NOTED.
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
== END 2018-12-08 13:05 | disposition home or self-care (01) | DRG 884 ==
LOC: EEVIPCON 14:09 → GP 14:09
PROVIDERS: ADMIT Psychiatry & Neurology Psychiatry; ATTEND Psychiatry & Neurology Psychiatry
DX: F03.91 Unspecified dementia, unspecified severity, with behavioral disturbance (principal); E43 Unspecified severe protein-calorie malnutrition; E41 Nutritional marasmus; F22 Delusional disorders; R41.0 Disorientation, unspecified; R41.3 Other amnesia; I10 Essential (primary) hypertension; F41.1 Generalized anxiety disorder; J45.909 Unspecified asthma, uncomplicated; K21.9 Gastro-esophageal reflux disease without esophagitis; Z79.899 Other long term (current) drug therapy; Z68.20 Body mass index [BMI] 20.0-20.9, adult
CPT/HCPCS: 36415; 80061; 82607; 82746; 83036; 84425; 84443; 97150; 97165; 97530; G0378